=== PATIENT | male | born 1965 | race Caucasian/White ===

== ENCOUNTER → 2017-05-22 14:56 | Outpatient (CLI) | payer SELFPAY ==
[2017-05-22 16:24] LABS: ALB/GLOB Ratio 1.2 RATIO (0.9-2.4); AST(SGOT) 26 U/L (15-37); Alanine Aminotransfer ALT/SGPT 23 U/L (16-61); Albumin, Serum 3.6 g/dL (3.2-5.0); Alkaline Phosphatase 65 U/L (45-117); Anion Gap 8 (5-15); BUN 16 mg/dL (7-18); BUN/Creat Ratio 14.2 RATIO (10-20); Calcium,Total 8.6 mg/dL (8.5-10.1); Chloride 110 mmol/L (98-107); Creatinine, Serum 1.13 mg/dL (0.70-1.30); EST Glomerular Filtration Rate 72 mL/min (>60); Est Glom Filt Rate - Afr Amer 87 mL/min (>60); Globulin 3.1 g/dL (2.2-4.2); Glucose 87 mg/dL (74-106); Potassium 3.9 mmol/L (3.5-5.1); Protein, Total 6.7 g/dL (6.4-8.2); Sodium Level 144 mmol/L (136-145)
[2017-05-27 11:10] LABS: Lamotrigine (Lamictal) Level 4.7 ug/mL (2.0-20.0)
== END ==
LOC: LAB 14:58
PROVIDERS: Visit Provider Nurse Practitioner Acute Care
DX: G40.909 Epilepsy, unspecified, not intractable, without status epilepticus (principal)
CPT/HCPCS: 36415; 80053; 82542

== ENCOUNTER → 2018-11-05 15:02 | Outpatient (CLI) | payer MEDICARE, SELFPAY ==
[2018-11-05 14:47] VITALS: BMI 26.1
--- NOTE | 2018-11-05 15:06 | RAD_ITS ---
STUDY: X-RAY - LEFT SHOULDER REASON FOR EXAM: Male, 53 years old. POST OP PAIN TECHNIQUE: 4 view(s) of the shoulder. COMPARISON: 05/12/2015. FINDINGS: Stable appearance of a left total shoulder arthroplasty. No evidence for complication, loosening, or dislocation. Normal visualized proximal humerus. The soft tissue structures are unremarkable. Normal visualized pulmonary apex. RAD/Shoulder min 2 Views IMPRESSION: Stable satisfactory appearance of a left shoulder arthroplasty. Electronically Signed: Herve Sullivan MD at 18:54 EDT , Service support ,
--- NOTE | 2018-11-05 15:06 | RAD_ITS ---
STUDY: X-RAY - CERVICAL SPINE REASON FOR EXAM: Male, 53 years old. Back pain. TECHNIQUE: 5 view(s) of the cervical spine were obtained. COMPARISON: None FINDINGS: Normal anterior atlantoaxial articulation. Normal odontoid process. Normal cervical lordosis. Normal vertebral bodies and endplates. Normal disc space heights. Normal visualized intervertebral neuroforamina. The soft tissue structures are unremarkable. RAD/Cerv Spine 4 or 5 Views IMPRESSION: Normal x-ray examination of the visualized cervical spine. Electronically Signed: Marlo Salazar MD at 8:50 EDT , Service support ,
--- NOTE | 2018-11-05 15:06 | RAD_ITS ---
STUDY: X-RAY - RIGHT SHOULDER REASON FOR EXAM: Male, 53 years old. Postop pain TECHNIQUE: 4 view(s) of the shoulder. COMPARISON: 07/08/2014. FINDINGS: Stable appearance of a right humeral prosthesis with no evidence for complication or loosening. No pathologic fracture. No dislocation. Normal acromioclavicular joint. Normal acromion. Stable appearance of heterotopic bone along the inferior aspect of the glenoid which may be restricting range of motion. Normal visualized proximal humerus. The soft tissue structures are unremarkable. Normal visualized pulmonary apex. RAD/Shoulder min 2 Views IMPRESSION: No change and no evidence for consultation related to the shoulder arthroplasty. Heterotopic bone is stable and could be decreasing range of motion. Electronically Signed: Herve Sullivan MD at 18:57 EDT , Service support ,
== END ==
LOC: HPRAD 15:05
PROVIDERS: Family Provider Student in an Organized Health Care Education/Training Program; PCP Student in an Organized Health Care Education/Training Program; Referring Provider Orthopaedic Surgery; Visit Provider Orthopaedic Surgery
DX: M54.2 Cervicalgia (principal); M25.511 Pain in right shoulder; M25.512 Pain in left shoulder
CPT/HCPCS: 72050; 73030

== ENCOUNTER → 2018-11-07 13:43 | Outpatient (CLI) | payer MEDICARE, SELFPAY ==
[2018-11-05 14:47] VITALS: BMI 26.1
[2018-11-07 15:08] LABS: Absolute Lymphocyte Count 2.37 X10^3/uL (0.83-4.51); Absolute Neutrophil Count 4.1 X10^3/uL (2.0-7.7); Basophil# 0.02 X10^3/uL; Basophil% 0.3 % (0-1); Eosinophil# 0.14 X10^3/uL; Eosinophils% 1.8 % (0-5); Hematocrit 39.1 % (40-54); Hemoglobin 13.1 g/dL (13.0-16.5); Lymphocyte # 2.37 X10^3/ul (4.0); Lymphocyte % 30.9 % (19-41); Mean Corp Hgb Conc 33.5 g/dL (32-36); Mean Corpuscular Hgb 32.3 pg (27.0-32.0); Mean Corpuscular Volume 96.5 fL (80-94); Monocyte# 1.01 X10^3/uL; Monocyte% 13.2 % (0-10); NRBC Flagged by Analyzer 0 % (0-5); Neutrophil # 4.12 X10^3/uL (2.7-7.7); Neutrophil % 53.7 % (47-70); Platelet Count 219 K/mm3 (150-450); RBC Distribution Width CV 12.1 % (11.6-14.6); Red Blood Count 4.05 M/mm3 (4.6-6.2); White Blood Count 7.7 K/mm3 (4.4-11.0)
[2018-11-07 15:18] LABS: Erythrocyte Sedimentation Rate 27 mm/hr (0-20)
== END ==
PROVIDERS: Family Provider Student in an Organized Health Care Education/Training Program; PCP Student in an Organized Health Care Education/Training Program; Referring Provider Orthopaedic Surgery; Visit Provider Orthopaedic Surgery
DX: Z96.611 Presence of right artificial shoulder joint (principal)
CPT/HCPCS: 36415; 85025; 85652; 86140

== ENCOUNTER → 2018-12-05 05:54 | Outpatient (CLI) | payer MEDICARE, SELFPAY ==
[2018-11-24 14:08] VITALS: BMI 26.1
--- NOTE | 2018-12-05 05:59 | NM_ITS ---
CLINICAL: 53-year-old male with reported history of painful bilateral shoulder arthroplasties. WHOLE BODY Tc SULFUR COLLOID EXAMINATION COMPARISON: Plain film radiographic reports bilateral shoulders 11/05/2018 FINDINGS: Following the intravenous administration of 27.8 mCi of Tc sulfur colloid, image acquisitions obtained at 30 minutes post radiopharmaceutical administration reveal: 1. There is physiologic distribution of the radiopharmaceutical defined in the hepatic and splenic parenchyma, appendicular and axial marrow structures. NM/Inflammatory Process WB IMPRESSION: 1. An expected-normal physiologic pattern of tracer uptake is noted as described above. 2. The results of this examination should be compared to labeled leukocyte imaging to define the presence or absence of potential right and/or left shoulder arthroplasty septic prosthetic loosening. Electronically Signed: Nikita Roberts DO at 8:15 EDT Tel , Service support ,
== END ==
LOC: NM 05:57
PROVIDERS: Family Provider Student in an Organized Health Care Education/Training Program; PCP Student in an Organized Health Care Education/Training Program; Referring Provider Orthopaedic Surgery; Visit Provider Orthopaedic Surgery
DX: R70.0 Elevated erythrocyte sedimentation rate (principal); Z96.611 Presence of right artificial shoulder joint; Z96.612 Presence of left artificial shoulder joint
CPT/HCPCS: 78806; A9521

== ENCOUNTER 2019-01-23 09:30 | Outpatient (RCR) | payer MEDICARE, SELFPAY ==
[2018-11-24 14:08] VITALS: BMI 26.1
--- NOTE | 2018-12-22 15:47 | HP.PTEVAL ---
Patient's Visit Information SHANNON CHUNG is a 53 year old M referred to Physical Therapy by Robert Hernandez DO with a diagnosis of R hemiarthroplasty, L TSA. Date of Evaluation: 12/22/18 Physical Therapist: Mario Gilman, LUZT, OCS, CSCS - Visit Plan Frequency: 3x /Week Duration: 2-4 Weeks Plan: 3x/week for 2 -4 weeks for STM to B rhomboids, Shoulder AROM, strength of scap and RC and posture adn progress to HEP. MH as needed. - Subjective Findings: Has pain in center of back. H/o L TSA adn R khloe and not sure if that is part of the problem. Has brace for R shoulder which helped with shoulder pain. Got it two months ago and it helps. Current pain is in between shoulder blades for about a month 3/10 constantly. Works at [email or web address], is disabled, It is a light duty type thing. Epilieptic and missed last saturday due to seizures, that is the first one in a while. No idea what started this pain. Works with hands alot at work and been there about a year. Worse after work. Somewhat better with a lazy day. Housework gets irritated. No numbness or tingling in arms. No BONILLA, No dizzyness. Has a hard time remembering what he saw Dr. Rosales. then says this was f/u for shoulders. Doesski type thing for shoulders. - Pain scapula Pain Intensity (Out of 10): 3 Pain Intensity Range: 3 - Objective Posture is forward head and elevated adn forward scapula. Stiff. C/S AROM is 80 ext adn 85 B rotation without pain. Shoulder AROM flexion 135 L adn 140 R, ext rotation is 30 L and 35 R, IR is slow but functional. Scap aROM is slight limitations in depression and retraction but otherwise slow but full. reflexes 2/3 bi adn tri. Sensation UE WNL to gross light touch. Strength is 4- elevation, 3+ ext rotation B, adn 4 IR, 4+ biceps and triceps adn 4+ thumb ext - Goals Goal 1:: No tenderness in rhomboids adn patient feel 50% better with pain at 1/10 at worst. Goal Time Frame: 4-6 Weeks Goal 2:: Patient demonstrate apporpriate posture without VC consistently Goal Time Frame: 4-6 Weeks Goal 3:: I appropr HEP to minimize future problems Goal Time Frame: 4-6 Weeks Goal 4:: Less than 20% disability on quick dash Goal Time Frame: 4-6 Weeks - Rehabilitation Potential Physical Therapy Diagnosis: rhomboid strain Rehabilitation Potential: Fair - Anticipated Interventions Patient/Client Instruction: Educate patient on: Condition, Plan of Care For the Purpose of:: To decrease pain, To improve muscle performance and motor function, To increase tolerance to activity/condition/position, To improve ability of physical actions for home/community/work/leisure, To improve health of tissue Therapeutic Exercise to Include: Strength training, Postural training, Flexibilty training, Passive ROM, Active ROM, Scapular Strength/Stabilization For the Purpose of:: To decrease pain, To increase ROM, To improve muscle performance and motor function, To increase tolerance to activity/condition/position Manual Therapy Techniques to Include: Mobilization, Soft tissue mobilization For the Purpose of:: To decrease pain, To improve nutrient delivery to tissue Thermo therapy (hot pack): Yes For the Purpose of:: To decrease pain Thank you for the opportunity to evaluate your patient. For Medicare and Medicare HMO plans, please review the plan of care and approve it. It will need to be FAXED BACK to us at [phone] for Medicare purposes. For Medicare only, by signing this I certify the plan of care. Please let me know if there are questions or concerns regarding this plan of care. Physician Signature: Date:
--- NOTE | 2019-03-05 18:26 | HP.PT.NRP ---
HP - Discharge Summary (1) - Patient Information SHANNON CHUNG was seen in my office for initial evaluation on 12/22/18. The following Plan of Care was established for this patient: Initial Frequency: 3x /Week Initial Duration: 2-4 Weeks - Anticipated Interventions Patient/Client Instruction: Educate patient on: Condition, Plan of Care For the Purpose of:: To decrease pain, To improve muscle performance and motor function, To increase tolerance to activity/condition/position, To improve ability of physical actions for home/community/work/leisure, To improve health of tissue Therapeutic Exercise to Include: Strength training, Postural training, Flexibilty training, Passive ROM, Active ROM, Scapular Strength/Stabilization For the Purpose of:: To decrease pain, To increase ROM, To improve muscle performance and motor function, To increase tolerance to activity/condition/position Manual Therapy Techniques to Include: Mobilization, Soft tissue mobilization For the Purpose of:: To decrease pain, To improve nutrient delivery to tissue Thermo therapy (hot pack): Yes For the Purpose of:: To decrease pain This patient was last seen in our office 01/23/19. Pertinent comments regarding their Physical therapy will appear below: Pt seen 8 visits of his POC. He has not returned , scheduled or attended further visits at this point. It has been over a month and I will discontinue due to nonattendance. At this point I will be discontinuing this patient from physical therapy. I would be happy to see this patient again in the future if found appropriate by the physician. Thank you! Mario Gilman, DPT, OCS, CSCS
== END 2019-01-23 19:00 | disposition home or self-care (01) ==
LOC: PT 09:30
PROVIDERS: Family Provider Student in an Organized Health Care Education/Training Program; PCP Student in an Organized Health Care Education/Training Program; Referring Provider Orthopaedic Surgery; Visit Provider Orthopaedic Surgery
DX: M25.512 Pain in left shoulder (principal); M25.612 Stiffness of left shoulder, not elsewhere classified; Z96.612 Presence of left artificial shoulder joint
CPT/HCPCS: 97110; 97140; 97162

== ENCOUNTER 2019-02-04 13:39 | Emergency (ER) | payer MEDICARE, SELFPAY ==
[2018-11-24 14:08] VITALS: BMI 26.1
[2019-02-04 13:41] VITALS: BP 144/64; PULSE 83; RESP 16; TEMP 36.6; O2SAT 100; BMI 25.1
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
== END 2019-02-04 14:23 | disposition home or self-care (01) ==
LOC: ED 14:06
PROVIDERS: Emergency Provider Emergency Medicine; Family Provider Student in an Organized Health Care Education/Training Program; PCP Student in an Organized Health Care Education/Training Program
DX: L84 Corns and callosities (principal); F17.200 Nicotine dependence, unspecified, uncomplicated
CPT/HCPCS: 99282

== ENCOUNTER 2019-04-24 17:45 | Emergency (ER) | payer MEDICARE, SELFPAY ==
[2019-04-24 17:46] VITALS: BP 132/71; PULSE 75; RESP 16; TEMP 36.7; O2SAT 92; BMI 26.7
[2019-04-24] MEDS: Naproxen 500 MG Tablet PO (18:29)
--- NOTE | 2019-04-24 19:10 | ED.DCSUM_ITS ---
- ER Visit Summary Date of Service: 04/24/19 Chief Complaint: Abscess History of Present Illness: The patient is a [address] Fields. He works at [employer] and reports that a few months ago he was doing a job where he was closing a number of boxes and developed a sore on his left middle finger. He saw Dr. Fields was placed on an antibiotic the name of which she does not know and the lesion seemed to improve. Patient reports that he began doing this job again 5 days ago and that 2 days ago he had the lesion return. He reports he has a sharp pain is 10 out of 10 when he touches it and he has no pain at rest. Denies any numbness or weakness distally. His tetanus is up-to-date. He is right-hand dominant. He denies any constitutional symptoms. No fever, chills, nausea, or vomiting. Physical Examination: Vitals: Stable. Afebrile. General: Well-nourished and well-developed. Head: Normocephalic atraumatic. Neck: Supple, no lymphadenopathy. No JVD. Nontender. Cardiovascular: Regular rate and rhythm. No murmurs. Respiratory: No respiratory distress. Clear to auscultation bilaterally. Abdominal: Soft, nontender, nondistended, normal bowel sounds. No guarding, rebound, or peritoneal signs. Back: Nontender. Extremities: On the medial side of his left middle finger middle phalanx that there is a pea-sized callus with a black tawny in the center and minimal surrounding erythema. He is neurovascular intact distal to this, no edema. Skin: Normal color, no rash. Neurologic: Alert and oriented ?3. Cranial nerves II through XII are intact. Normal strength and sensation. Psych: Normal affect. Emergency Department Course and Treatment: Patient had an incision and drainage performed. He tolerated this well. He is given doxycycline p.o. He refused pain medications. Treatment Plan: Patient be discharged instructions follow-up Dr. Morris in 2 days for a wound check. He will be placed on doxycycline instructed to soak this. Return to the emergency department for any worsening symptoms. Disposition: To home in improved and stable condition. Impression: 1. Abscess left middle finger. 2. Incision and drainage. Procedure Note: Abscess was cleansed with chlorhexidine soap. Anesthetized with 1% lidocaine without epinephrine. An incision was made with an 11 scalpel blade. A small amount of pus was drained. Curved hemostats were used to break up loculations. The wound was copiously irrigated with normal saline.The patient tolerated it well. This note was generated with [employer] dictation software. It may contain incorrect words, spelling, and punctuation that were not noted in review of the chart prior to signing ED Disposition - Plan for ED Patient: Disposition: Home or Assisted Living Instructions: ABSCESS, Incision and Drainage Prescriptions: Doxycycline 100 mg PO BID #14 cap Prescription Printed Referrals: Vin Morris MD [STAFF PHYSICIAN] - 2 Days for wound check
[2019-04-24] MEDS: Doxycycline 100 MG CAPSULE PO (19:19)
[2019-04-24 19:22] VITALS: PULSE 70
== END 2019-04-24 19:25 | disposition home or self-care (01) ==
LOC: ED 18:03
PROVIDERS: Emergency Provider Emergency Medicine; PCP Student in an Organized Health Care Education/Training Program
DX: L02.512 Cutaneous abscess of left hand (principal); G40.909 Epilepsy, unspecified, not intractable, without status epilepticus; Z79.899 Other long term (current) drug therapy; F17.200 Nicotine dependence, unspecified, uncomplicated
CPT/HCPCS: 10060; 99283

== ENCOUNTER → 2019-08-03 12:12 | Outpatient (CLI) | payer MEDICARE, SELFPAY | PROVIDERS: PCP Student in an Organized Health Care Education/Training Program; Referring Provider Family Medicine; Visit Provider Family Medicine | DX: Z20.828 Contact with and (suspected) exposure to other viral communicable diseases (principal) | CPT/HCPCS: 87635; G2023; U0003 ==

== ENCOUNTER 2020-05-13 15:00 | Outpatient (RCR) | payer MEDICARE, SELFPAY ==
[2020-05-13] MEDS: COVID-19 VACC, MRNA(PFIZER)/PF 30 MCG/0.3 ML SYRINGE IM (15:25)
[2020-06-03] MEDS: COVID-19 VACC, MRNA(PFIZER)/PF 30 MCG/0.3 ML SYRINGE IM (14:46)
== END 2020-08-02 23:59 ==
LOC: IMMUN 15:00
PROVIDERS: PCP Student in an Organized Health Care Education/Training Program; Visit Provider Family Medicine
DX: Z23 Encounter for immunization (principal)
CPT/HCPCS: 0001A; 0002A; 91300

== ENCOUNTER 2022-06-07 15:06 | Emergency (ER) | payer MEDICARE, SELFPAY ==
[2022-06-07 15:08] VITALS: BP 129/67; PULSE 83; RESP 18; TEMP 37; BMI 22.9
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
[2022-06-07] MEDS: Ondansetron 4 MG/2 ML Vial IV (15:24)
[2022-06-07 15:27] LABS: Absolute Lymphocyte Count 2.61 X10^3/uL (0.83-4.51); Absolute Neutrophil Count 5.1 X10^3/uL (2.0-7.7); Basophil# 0.03 X10^3/uL; Basophil% 0.3 % (0-1); Eosinophils% 1.1 % (0-5); Hematocrit 38.7 % (40-54); Hemoglobin 13.2 g/dL (13.0-16.5); Lymphocyte # 2.61 X10^3/ul (0.83-4.51); Mean Corp Hgb Conc 34.1 g/dL (32-36); Mean Corpuscular Hgb 32.4 pg (27.0-32.0); Mean Corpuscular Volume 95.1 fL (80-94); Mean Platelet Vol. 10.2 fl (6.2-12.0); Monocyte# 1.13 X10^3/uL; Monocyte% 12.6 % (0-10); NRBC Flagged by Analyzer 0 % (0-5); Neutrophil # 5.09 X10^3/uL (2.7-7.7); Neutrophil % 56.7 % (47-70); Platelet Count 224 K/mm3 (150-450); RBC Distribution Width CV 12.4 % (11.6-14.6); RBC Distribution Width SD 43.6 fl (35.1-43.9); Red Blood Count 4.07 M/mm3 (4.6-6.2)
[2022-06-07 15:40] LABS: Alcohol, Blood (Medical)-Serum < 3.0 mg/dL
[2022-06-07 15:45] LABS: AST(SGOT) 24 U/L (15-37); Alanine Aminotransfer ALT/SGPT 22 U/L (16-61); Albumin, Serum 3.5 g/dL (3.2-5.0); Alkaline Phosphatase 56 U/L (45-117); Anion Gap 11 (5-15); BUN 11 mg/dL (7-18); BUN/Creat Ratio 9.6 RATIO (10-20); Calcium,Total 8.7 mg/dL (8.5-10.1); Chloride 107 mmol/L (98-107); Creatinine, Serum 1.14 mg/dL (0.70-1.30); EST Glomerular Filtration Rate 70 mL/min (>60); Est Glom Filt Rate - Afr Amer 85 mL/min (>60); Estimated Creatinine Clearance 68.33 ml/min; Globulin 3.5 g/dL (2.2-4.2); Glucose 131 mg/dL (74-106); Lipase 39 U/L (13-75); Potassium 3.3 mmol/L (3.5-5.1); Prolactin 16.3 ng/mL; Sodium Level 139 mmol/L (136-145); Troponin-I HS 9 pg/mL (3.0-78.0)
[2022-06-07 16:05] LABS: Lactic Acid 3.8 mmol/L (0.4-1.9)
[2022-06-07 16:07] LABS: International Normalized Ratio 1.1; Prothrombin Time (Protime)PT. 13.6 SECONDS (11.7-14.9)
[2022-06-07 16:08] LABS: Partial Thromboplast Time 27.7 Seconds (24.1-36.2)
[2022-06-07] MEDS: Lidocaine/Epi/Tetracaine 50 ML 1 APPLIC TOPICAL (16:49)
[2022-06-07 18:46] LABS: Bacteria 0 SEEN /hpf (None Seen); Mucous, Urine 0 SEEN /hpf (<or=2+); Red Blood Cells-Urine 0 SEEN /hpf (0-5); Squamous Epithelial Cells - UA 0 SEEN /hpf (0-5); White Blood Cells 0 SEEN /hpf (0-5)
[2022-06-07 18:48] LABS: Color, Urine Yellow (Yellow); Glucose, Dipstick Normal (Normal); Ketone-Dipstick 5 mg/dl (Negative); Leukocyte Esterase-Dipstick Negative /ul (Negative); Nitrite-Dipstick Negative (Negative); Occult Blood-Urine Negative /ul (Negative); Protein-Dipstick 15 mg/dl (Negative); Urine Bilirubin Dipstick Negative (Negative); Urine Clarity Clear (Clear); Urine Urobilinogen Normal (Normal); Urine pH 6.5 (5.0 - 8.0)
[2022-06-07 19:07] LABS: Amphetamine Urine VISTA NEGATIVE (<1000 ng/mL); Barbiturate Urine VISTA NEGATIVE (< 200 ng/mL); Benzodiazepine Urine VISTA NEGATIVE (< 200 ng/mL); Cocaine Urine VISTA NEGATIVE (< 300 ng/mL); Ecstacy Urine VISTA NEGATIVE (< 500 ng/mL); Methadone Urine VISTA NEGATIVE (< 300 ng/mL); PCP Urine VISTA NEGATIVE (< 25 ng/mL); THC Urine VISTA NEGATIVE (< 50 ng/mL); Vista UDS pH Range 6
[2022-06-07 19:19] VITALS: BP 123/69; PULSE 94; RESP 18; O2SAT 98
[2022-06-07 19:27] LABS: Reflex Lactate? Y
[2022-06-07 20:23] LABS: Lactic Acid 1.2 mmol/L (0.4-1.9)
[2022-06-07] MEDS: Lidocaine 2% /Epi 1:100 (20ml) 20 ML VIAL INFILT (20:28)
== END 2022-06-07 21:20 | disposition home or self-care (01) ==
PROVIDERS: Emergency Provider Emergency Medicine; PCP Student in an Organized Health Care Education/Training Program; Visit Provider Emergency Medicine
DX: R56.9 Unspecified convulsions (principal); F17.210 Nicotine dependence, cigarettes, uncomplicated; V89.2XXA Person injured in unspecified motor-vehicle accident, traffic, initial encounter; Z79.899 Other long term (current) drug therapy; F43.10 Post-traumatic stress disorder, unspecified; S01.02XA Laceration with foreign body of scalp, initial encounter
CPT/HCPCS: 12002; 70450; 70486; 71260; 72125; 74177; 80053; 80307; 81001; 82077; 83605; 83690; 84146; 84484; 85025; 85610; 85730; 93005; 96374; 99284; Q9967; A4216; J2405

== ENCOUNTER 2022-08-25 14:12 | Inpatient (IN) | payer MEDICARE, SELFPAY ==
--- NOTE | 2022-08-24 | MISC_PTH ---
PATIENT: SHANNON CHUNG LOC: [facility]3 U#:[id number] AGE/SX: 56/M ROOM: WA311 RE08/25/[address]: Dr. Desiree Ibarra DO : 1965 BED: 1 DIS: 08/30/2022 SPEC #: [id number] RECD: 08/27/22 12:50 STATUS: JENNIFER REQ #: [id number] GRIFFIN: 08/24/22 00:[address]: Todd Saldana DEPT: SURGICAL PATHOLOGY RECD BY: Dilshad Silver ENTERED: 08/27/22 12:51 SP TYPE: MISC OTHR DR: MD Dr. Jose Sandoval DO Dr. Kathryn Lee, DO Dr. Mark Tereletsky, Tissues: Small intestine mucous membrane Procedures: Surgery Specimen Level IV Comments: @ Ordering doctor for SUIV edited from to @ mary BETH at 08/27/22 1500 @ Submitting doctor edited from to DR.ACALAB Jose M BETH at 08/27/22 1500 HEADER OPERATION: Exploratory laparotomy, SBO, small bowel resection PRE-OP DIAGNOSIS: Small bowel obstruction TISSUE SUBMITTED: Small bowel segment MICROSCOPIC DIAGNOSIS Small bowel, segmental resection: Focal acute serositis. Vascular ectasia and mucosal denudation. See comment. AM:juan 08/29/2022 COMMENT The findings are consistent with bowel obstruction. Clinical correlation is suggested. MICROSCOPIC DESCRIPTION Slides are reviewed. GROSS DESCRIPTION Received in fixative is one container labeled with the patient's name and designated small bowel segment. The specimen consists of a segment of small intestine measuring 5.0 cm in length and up to 3.0 cm in diameter. Attached mesenteric tissue measures up to 1.0 cm in width. Both resection margins are stapled. A defect is noted close to one resection margin. Also present in the container is a black, foamy- spongy ball (foreign body) measuring 2.5 cm in diameter. No mucosal lesion is identified. Crankshaft Straightener sections are submitted in two cassettes as follows: 1 - resection margin, 2??auto service representative sections from the other areas. Foreign body is for gross identification only. / SONIA:juan 08/27/2022 TC:2 CPT: 48890
[2022-08-25 14:14] VITALS: BP 147/69; PULSE 112; RESP 24; TEMP 36.3; BMI 22.4
--- NOTE | 2022-08-25 14:31 | CT_ITS ---
We are attempting to reach an attending provider to discuss findings. An addendum with communication details will be sent when the communication is complete. STUDY: CT ABDOMEN AND PELVIS WITH CONTRAST - URINARY TRACT REASON FOR EXAM: Male, 56 years old. Abdominal pain RADIATION DOSAGE (If Supplied By Facility): CTDIvol = ( 11.87 ) mGy, DLP = ( 694.71 ) mGycm TECHNIQUE: IV 100mL Isovue-300 was administered. Transaxial images were obtained from the dome of the diaphragm to the symphysis pubis in the arterial, nephrographic and excretory phases. Multiplanar coronal and sagittal images were reformatted. Individualized Dose Optimization Techniques Were Used For This CT. COMPARISON: Previous CT scan of 06/07/2022. FINDINGS: The visualized portions of lung bases demonstrate mild atelectatic changes in the right lower lobe. The visualized portions of the heart are within normal limits. Normal liver. Normal gallbladder and extrahepatic biliary system. Normal spleen. Normal pancreas. Normal bilateral adrenal glands. Normal visualized stomach. Distended stomach. Markedly dilated fluid-filled with normal caliber distal small bowel. There is a transitional zone in the pelvic region. The colon is nondistended. The appendix is unremarkable. There is diffuse atherosclerotic calcification of the abdominal aorta, without a demonstrated aneurysm. No retroperitoneal adenopathy. Normal right kidney. Normal left kidney. Normal urinary bladder. Normal abdominal wall. No demonstrated acute osseous changes. CT/Abdomen/Pelvis W IV Cont ONLY IMPRESSION: Dilated small bowel loops with normal caliber distal ileal loops consistent with high-grade distal small bowel obstruction. Electronically Signed: Gabriel Dang MD at 15:25 EDT ,
--- NOTE | 2022-08-25 14:32 | EDS_ITS ---
HPI HPI - GI History of Present Illness Chief Complaint: Abd Pain Detail of Chief Complaint: Abdominal pain Informant: patient Narrative Narrative: Patient presents to the emergency department with complaint of abdominal pain that started about 2 or 3 days ago. Patient complains of frequent vomiting. Denies fever. He denies diarrhea. He denies urinary symptoms. Patient rates pain a 10 out of 10. He has had no prior abdominal surgeries. Patient states that his vomit at times smells like feces. Prior similar symptoms: No PFSH PFSH Medical History DDD (degenerative disc disease), lumbar Epilepsy PTSD (post-traumatic stress disorder) Home Medications gabapentin 300 mg capsule 300 mg PO BID 05/14/16 [History Last Taken Unknown] lamotrigine 200 mg tablet 200 mg PO BID 05/14/16 [History Last Taken Unknown] nortriptyline 10 mg capsule 10 mg PO QHS 05/14/16 [History Last Taken Unknown] ferrous sulfate 325 mg (65 mg iron) tablet 325 mg PO DAILY@0800 05/15/16 [History Last Taken Unknown] fluoxetine 20 mg capsule 20 mg PO DAILY 05/15/16 [History Last Taken Unknown] lamotrigine 100 mg tablet 100 mg PO TID 05/15/16 [History Last Taken Unknown] multivitamin 1 ea PO DAILY 05/15/16 [History Last Taken Unknown] topiramate 25 mg capsule,extended release 24 hr 25 mg PO DAILY 11/05/18 [History Last Taken Unknown] baclofen 10 mg tablet 10 mg PO QHS 02/04/19 [History Last Taken Unknown] clonazepam 0.5 mg tablet 0.25 mg PO QHS 02/04/19 [History Last Taken Unknown] doxycycline monohydrate 100 mg capsule 100 mg PO BID #14 caps 04/24/19 [Rx Last Taken Unknown] Allergy/AdvReac Type Severity Reaction Status Date / Time No Known Allergies Allergy Verified 06/07/22 15:07 Social History Smoking Status: Current every day smoker tobacco type: cigarettes ROS ROS ED Review of Systems ROS Unobtainable: other Constitutional Constitutional ED: Reports lethargy; Denies chills, fever(s), sweats or weight loss Eyes Eyes: Denies blurry vision, change in vision or diplopia ENT ENT ED: Denies rhinorrhea or sore throat Cardiovascular Cardiovascular: Denies chest pain, orthopnea or racing heartbeat Respiratory/Chest Respiratory/Chest: Denies cough, dyspnea, dyspnea on exertion, orthopnea or sputum Gastrointestinal Gastrointestinal: Reports abdominal pain, nausea and vomiting; Denies diarrhea Genitourinary Genitourinary ED: Denies dysuria, hematuria or urinary frequency Musculoskeletal Musculoskeletal: Denies arthralgias, back pain, myalgias or neck pain Integumentary Denies abscess, Abrasions or rash Neurologic Neurologic: Denies headache(s) or weakness Psychiatric Psychiatric: Denies anxiety, depression or suicidal thoughts Endocrine Endocrinology: Denies polydipsia, polyphagia or polyuria Hematologic/Lymphatic Hematologic/Lymphatic: Denies easy bleeding, easy bruising or lymphadenopathy Allergic/Immunologic Allergic/Immunologic ED: Denies mouth swelling, tongue swelling or urticaria EXAM Physical Exam Const Vital Signs: 08/25/22 14:14 08/25/22 15:57 Temperature 97.3 F L 97.8 F Temperature Source Temporal Temporal Pulse Rate 112 H 89 Respiratory Rate 24 H 14 Blood Pressure 147/69 H 154/76 H Blood Pressure Mean 95 102 Pulse Ox 99 Oxygen Delivery Method Room Air Positive well nourished and well developed General Appearance ED: well developed and NAD HEENT Reports TM's clear and moist mucous membranes normocephalic and atraumatic; Negative for trauma or tenderness Tympanic Membrane ED: Yes TM's clear Eyes PERRL and EOMs intact bilaterally General Eye ED: Negative for pale conjunctiva or scleral icterus Neck no lymphadenopathy, supple and no JVD General: Negative for tenderness Chest Wall inspection of chest normal and palpation of chest normal Chest: Negative for tenderness Resp normal respiratory effort and clear to auscultation bilaterally Effort and Inspection: Negative for respiratory distress or pain with movement Auscultation: Negative for rhonchi, wheezes or diminished lung sounds Cardio regular rate, regular rhythm, S1 normal heart sound, S2 normal heart sound and no murmurs Peripheral Pulses: pulses 2+ throughout GI normal to inspection, nondistended, normoactive bowel sounds, soft to palpation, non-distended and no masses GI Narrative: Tender to palpation over the entire abdomen diffusely. There is guarding. There is no rebound, rigidity, peritoneal signs. No masses palpated. Back/Spine no CVA tenderness and no thoracic nor lumbar tenderness Extremity normal to inspection General Extremety ED: Negative for edema General Extremity: Negative for edema Neuro oriented x3, CN's II-XII intact bilaterally, no sensory deficits noted and gait normal Sensorium / Orientation: awake, alert, oriented to person, oriented to place and oriented to time Motor Exam: strength 5/5 throughout and strength abnormal Psych mental status grossly normal Skin no rashes or lesions noted and no wounds MDM MDM MDM Narrative Medical decision making narrative: Patient presents with significant abdominal pain and vomiting x2 days. No prior surgeries. In the differential would be gallbladder disease versus small bowel obstruction versus bowel perforation versus appendicitis or other intra- abdominal process. IV line established. Patient was medicated Zofran and Dilaudid. CBC with differential obtained showed a white count of 14.2 with hemoglobin of 16 and platelet count of 341. Chemistries unremarkable. LFTs unremarkable. CT scan of the abdomen pelvis with IV contrast showed a high- grade small bowel obstruction with transition point in the pelvis. Case was discussed with general surgeon on-call. I ordered an NG to low intermittent suction to be placed. Discussed case with hospitalist to evaluate patient for admission as well. Lab Data Attestation: I reviewed the patient's lab results. Labs: Laboratory Results - last 24 hr 08/25/22 14:43 WBC 14.2 H RBC 5.03 Hgb 16.1 Hct 47.1 MCV 93.6 MCH 32.0 MCHC 34.2 RDW Std Deviation 42.7 RDW Coeff of [place]acho 12.3 Plt Count 341 MPV 9.7 Immature Gran % (Auto) 0.200 Neut % (Auto) 84.5 H Lymph % (Auto) 8.1 L [place] % (Auto) 7.0 Eos % (Auto) 0.0 Baso % (Auto) 0.2 Absolute Neuts (auto) 12.0 H Absolute Lymphs (auto) 1.15 Nucleated RBC % 0 Sodium 140 Potassium 4.0 Chloride 104 Carbon Dioxide 26.0 Anion Gap 10 BUN 18 Creatinine 1.11 Estim Creat Clear Calc 68.74 Est GFR (MDRD) Af Amer 87 Est GFR (MDRD) Non-Af 72 BUN/Creatinine Ratio 16.2 Glucose 116 H Lactic Acid 1.7 Calcium 10.9 H Total Bilirubin 0.50 AST 13 L ALT 17 Alkaline Phosphatase 73 Total Protein 8.1 Albumin 3.5 Globulin 4.6 H Albumin/Globulin Ratio 0.8 L Radiography Diagnostic Testing: Clinical Impression(s) from Imaging Studies Abdomen/Pelvis CT 08/25/22 14:31 IMPRESSION: Dilated small bowel loops with normal caliber distal ileal loops consistent with high-grade distal small bowel obstruction. Electronically Signed: Gabreil Dang MD at 15:25 EDT , ADDENDUM: 08/25/22 1536 IMPRESSION: Dilated small bowel loops with normal caliber distal ileal loops consistent with high-grade distal small bowel obstruction. N.B. : The above Results were Read Back by Gabriel Dang MD to Juan R Foote DO, and understanding confirmed on 08/25/2022 15:29:13 (ET). Electronically Signed: Gabriel Dang MD at 15:25 EDT , 1 view KUB obtained for NG tube placement on my interpretation shows good position of the nasogastric tube within the fundus of the stomach. Official report from radiology pending. Discharge Plan Dx/Rx/DC Orders Clinical Impression: Complete small bowel obstruction, History of epilepsy, Abdominal pain Disposition Disposition: Acute Care [facility]
[2022-08-25] MEDS: 0.9% Normal Saline 1,000 ML 1000 ML IV (14:43)
[2022-08-25] MEDS: Ondansetron 4 MG/2 ML Vial IV (14:44)
[2022-08-25] MEDS: HYDROmorphone 1 MG/ML Syringe IV (14:44)
[2022-08-25 14:55] LABS: Absolute Lymphocyte Count 1.15 X10^3/uL (0.83-4.51); Basophil# 0.03 X10^3/uL; Basophil% 0.2 % (0-1); Hematocrit 47.1 % (40-54); Hemoglobin 16.1 g/dL (13.0-16.5); Lymphocyte # 1.15 X10^3/ul (0.83-4.51); Lymphocyte % 8.1 % (19-41); Mean Corp Hgb Conc 34.2 g/dL (32-36); Mean Corpuscular Volume 93.6 fL (80-94); Mean Platelet Vol. 9.7 fl (6.2-12.0); Monocyte# 0.99 X10^3/uL; NRBC Flagged by Analyzer 0 % (0-5); Neutrophil # 12.02 X10^3/uL (2.7-7.7); Neutrophil % 84.5 % (47-70); Platelet Count 341 K/mm3 (150-450); RBC Distribution Width CV 12.3 % (11.6-14.6); RBC Distribution Width SD 42.7 fl (35.1-43.9); Red Blood Count 5.03 M/mm3 (4.6-6.2); White Blood Count 14.2 K/mm3 (4.4-11.0)
[2022-08-25 15:07] LABS: ALB/GLOB Ratio 0.8 RATIO (0.9-2.4); AST(SGOT) 13 U/L (15-37); Alanine Aminotransfer ALT/SGPT 17 U/L (16-61); Albumin, Serum 3.5 g/dL (3.2-5.0); Alkaline Phosphatase 73 U/L (45-117); Anion Gap 10 (5-15); BUN 18 mg/dL (7-18); BUN/Creat Ratio 16.2 RATIO (10-20); Calcium,Total 10.9 mg/dL (8.5-10.1); Chloride 104 mmol/L (98-107); Creatinine, Serum 1.11 mg/dL (0.70-1.30); EST Glomerular Filtration Rate 72 mL/min (>60); Est Glom Filt Rate - Afr Amer 87 mL/min (>60); Estimated Creatinine Clearance 68.74 ml/min; Globulin 4.6 g/dL (2.2-4.2); Glucose 116 mg/dL (74-106); Protein, Total 8.1 g/dL (6.4-8.2); Sodium Level 140 mmol/L (136-145)
--- NOTE | 2022-08-25 15:52 | RAD_ITS ---
INDICATION: ng tube placement -- KUB with both diaphragms for NG/OG Verification EXAMINATION/TECHNIQUE: X-RAY - XR Abdomen 1 View COMPARISON: None FINDINGS: BOWEL GAS PATTERN: Multiple dilated loops of small bowel measuring up to 3.1 cm in diameter. There is an NG tube in place with tip and sidehole in the stomach. FREE AIR: Not assessed on a single supine view. ORGANOMEGALY: Not seen. CALCIFICATIONS: No abnormal calcifications observed. LOWER CHEST: No acute pathology. BONES AND SOFT TISSUES: No acute pathology. RAD/Abdomen Single View (Portable) IMPRESSION: NG tube in place with tip and sidehole in the stomach. Findings consistent with small bowel obstruction. Electronically Signed: Arnie Beatty MD at 16:51 EDT ,
[2022-08-25 15:53] LABS: Lactic Acid 1.7 mmol/L (0.4-1.9)
--- NOTE | 2022-08-25 15:54 | NURSING ---
MED SURG TERELETSKY SBO, HYPERTENSION, ABD PAIN, HX OF SEIZURES
[2022-08-25 15:57] VITALS: BP 154/76; PULSE 89; RESP 14; TEMP 36.6; O2SAT 99
[2022-08-25 17:44] VITALS: BMI 21.7
--- NOTE | 2022-08-25 18:23 | PCM.HP.STD ---
HPI - General General Date of Admission: 08/25/22 Date of Service: 08/25/22 Chief Complaint: Nausea and vomiting, generalized abdominal pain HPI Narrative SHANNON CHUNG, is a 56 M who presents to the emergency room at [facility] with complaints of generalized abdominal pain and nausea and vomiting x48 hours. Patient denies any diarrhea, he denies any hematemesis. Work-up in the emergency room showed an elevated white blood cell count of 14.2, patient's chemistry profile was unremarkable. CT of the abdomen and pelvis showed a dilated small bowel loops with normal caliber distal ileal loops consistent with a high-grade distal small bowel obstruction. NG tube was inserted in the emergency room, patient will be seen by general surgery, he will be admitted to [place] [id number] for distal small bowel obstruction. FORMERLY [facility], [facility]1983 Medical History DDD (degenerative disc disease), lumbar Epilepsy PTSD (post-traumatic stress disorder) Home Medications gabapentin 300 mg capsule 300 mg PO BID 05/14/16 [History Last Taken Unknown] lamotrigine 200 mg tablet 200 mg PO BID 05/14/16 [History Last Taken Unknown] nortriptyline 10 mg capsule 10 mg PO QHS 05/14/16 [History Last Taken Unknown] ferrous sulfate 325 mg (65 mg iron) tablet 325 mg PO DAILY@0800 05/15/16 [History Last Taken Unknown] fluoxetine 20 mg capsule 20 mg PO DAILY 05/15/16 [History Last Taken Unknown] lamotrigine 100 mg tablet 100 mg PO TID 05/15/16 [History Last Taken Unknown] multivitamin 1 ea PO DAILY 05/15/16 [History Last Taken Unknown] topiramate 25 mg capsule,extended release 24 hr 25 mg PO DAILY 11/05/18 [History Last Taken Unknown] baclofen 10 mg tablet 10 mg PO QHS 02/04/19 [History Last Taken Unknown] clonazepam 0.5 mg tablet 0.25 mg PO QHS 02/04/19 [History Last Taken Unknown] doxycycline monohydrate 100 mg capsule 100 mg PO BID #14 caps 04/24/19 [Rx Last Taken Unknown] Allergy/AdvReac Type Severity Reaction Status Date / Time No Known Allergies Allergy Verified 06/07/22 15:07 Social History Smoking Status: Current every day smoker tobacco type: cigarettes ROS Constitutional Constitutional: Denies anorexia, change in weight, fever(s), night sweats or weakness Eyes Eyes: Denies blurry vision, change in vision, discharge from eye(s) or eye pain ENT HEENT: Denies dysphagia, ear pain or epistaxis Cardiovascular Cardiovascular: Denies chest pain, claudication, dyspnea on exertion, edema or palpitations Respiratory/Chest Respiratory/Chest: Denies cough, excessive phlegm production, hemoptysis, shortness of breath at rest or shortness of breath with exertion Gastrointestinal Gastrointestinal: Reports abdominal pain, nausea and vomiting; Denies constipation, diarrhea, hematemesis, hematochezia or melena Genitourinary Genitourinary: Denies dysuria, hematuria, urinary frequency, urinary hesitancy, urinary incontinence or urinary urgency Musculoskeletal Musculoskeletal: Denies back pain, joint pain, joint stiffness, joint swelling, myalgias or neck pain Neurologic Neurologic: Reports seizures; Denies abnormal gait, abnormal speech, confusion, disequilibrium, dizziness, focal weakness, headache(s), loss of vision, numbness, other visual disturbances, paresthesias, syncope or tingling Psychiatric Psychiatric: Denies anxiety, cognitive impairment, depression, irritability, mood swings or suicidal ideation Endocrine Endocrinology: Denies change in body appearance, cold intolerance, excessive sweating, heat intolerance, polydipsia or polyuria Hematologic/Lymphatic Hematologic/Lymphatic: Denies none, anemia, easy bleeding, easy bruising or lymphadenopathy Allergic/Immunologic Allergic/Immunologic: Denies rhinitis, urticaria, eczemia or asthma Vital Signs Vital Signs Vital Signs: 08/25/22 14:14 08/25/22 15:57 08/25/22 17:58 Temperature 97.3 F L 97.8 F Temperature Source Temporal Temporal Pulse Rate 112 H 89 Respiratory Rate 24 H 14 Respiratory Effort Normal Non-Labored Respiratory Depth Normal Blood Pressure 147/69 H 154/76 H Blood Pressure Mean 95 102 Pulse Ox 99 Oxygen Delivery Method Room Air Room Air Weight Weight: 66.8 kg Body Mass Index (BMI) 21.7 Physical Exam Const alert, oriented x3 and no apparent distress Constitutional Narrative: Patient appears cachectic and unwell General Appearance: cooperative, well kempt and well developed Orientation / Consciousness: awake, oriented to person, oriented to place and oriented to time HEENT normocephalic, head/scalp atraumatic, hearing grossly normal bilaterally and moist oral mucous membranes Eyes PERRL, EOMs intact bilaterally and conjunctivae normal Neck supple, no JVD, thyroid normal and no carotid bruits General: trachea midline Resp normal respiratory effort, no retractions, no use of accessory muscles and clear to auscultation bilaterally Auscultation: Negative for rales, rhonchi or wheezes Cardio regular rate, regular rhythm, S1 normal heart sound, S2 normal heart sound, no murmurs, no rub and no gallops GI GI Narrative: Abdomen is nondistended, high-pitched bowel sounds are noted to be present Extremity no clubbing, cyanosis or edema Skin no rashes or lesions noted General Skin Exam: no breakdown Neuro oriented x3, CN's II-XII intact bilaterally, moves all extremities, no focal motor deficits and no sensory deficits noted Sensorium / Orientation: awake, alert, oriented to person, oriented to place and oriented to time Speech: speech normal Psych affect normal Results Lab / Micro Data 08/25/22 14:43 08/25/22 14:43 Labs: Laboratory Results - last 24 hr 08/25/22 14:43: WBC 14.2 H, RBC 5.03, Hgb 16.1, Hct 47.1, MCV 93.6, MCH 32.0, MCHC 34.2, RDW Std Deviation 42.7, RDW Coeff of [place]acho 12.3, Plt Count 341, MPV 9.7, Immature Gran % (Auto) 0.200, Neut % (Auto) 84.5 H, Lymph % (Auto) 8.1 L, [place] % (Auto) 7.0, Eos % (Auto) 0.0, Baso % (Auto) 0.2, Absolute Neuts (auto) 12.0 H, Absolute Lymphs (auto) 1.15, Nucleated RBC % 0, Sodium 140, Potassium 4.0, Chloride 104, Carbon Dioxide 26.0, Anion Gap 10, BUN 18, Creatinine 1.11, Estim Creat Clear Calc 68.74, Est GFR (MDRD) Af Amer 87, Est GFR (MDRD) Non-Af 72, BUN/Creatinine Ratio 16.2, Glucose 116 H, Lactic Acid 1.7, Calcium 10.9 H, Total Bilirubin 0.50, AST 13 L, ALT 17, Alkaline Phosphatase 73, Total Protein 8.1, Albumin 3.5, Globulin 4.6 H, Albumin/Globulin Ratio 0.8 L Radiology Impression Abdomen/Pelvis CT 08/25/22 14:31 IMPRESSION: Dilated small bowel loops with normal caliber distal ileal loops consistent with high-grade distal small bowel obstruction. Electronically Signed: Gabriel Dang MD at 15:25 EDT , ADDENDUM: 08/25/22 1536 IMPRESSION: Dilated small bowel loops with normal caliber distal ileal loops consistent with high-grade distal small bowel obstruction. N.B. : The above Results were Read Back by Gabriel Dang MD to Juan R Foote DO, and understanding confirmed on 08/25/2022 15:29:13 (ET). Electronically Signed: Gabriel Dang MD at 15:25 EDT , KUB X-Ray 08/25/22 15:52 IMPRESSION: NG tube in place with tip and sidehole in the stomach. Findings consistent with small bowel obstruction. Electronically Signed: Arnie Beatty MD at 16:51 EDT , Assessment & Plan Assessment/Plan (1) Abdominal pain: PLAN: Plan 1. Middle small bowel obstruction-etiology unclear, general surgery will see the patient in consultation, patient will be admitted to [facility] 3, NG tube was inserted in the ER and this will be continued, IV fluids will be administered #2 chronic seizure disorder-I will place the patient on IV Keppra #3 leukocytosis-etiology unclear Total clinical time spent by myself addressing patient's medical issues, reviewing all of his data, and collaborating with patient's care team: 55-minutes Charges/Coding Visit Charges Inpatient E&M: 10545 Init Hosp L2
--- NOTE | 2022-08-25 18:58 | CON.PCM.SX_ITS ---
Assessment & Plan Assessment/Plan (1) Complete small bowel obstruction: PLAN: The patient had vomiting and abdominal pain. A CT revealed a small bowel obstruction. Upon review of the CT it appears there is a very large rounded object causing this obstruction in the mid small bowel. When I reviewed his CT from May it appears that this round object was in his stomach at the pylorus. I discussed performing a laparotomy tomorrow morning to remove the segment of bowel and perform an anastomosis. I believe would be too large to remove and repair the bowel. I discussed the risks of the procedure such as bleeding, infection, anastomotic leak. Patient understands the risks and is willing to proceed. Patient has an NG tube and is comfortable at this time. I will perform surgery in the morning to remove this segment of bowel in the obstruction. Todd Saldana MD Pager: [facility] [address] [place] [address], [address] [place] [phone] Office: HPI Consult Data Date of Consult: 08/25/22 HPI Narrative HPI Narrative: SHANNON CHUNG, is a 56 M who presents with abdominal pain and vomiting. The hardik victoria reports is been going on for 3 days. Patient reports his abdominal pain is spotty throughout his abdomen. He denies any blood in his stool. He reports that he has been vomiting up fecal material. [facility] Medical History DDD (degenerative disc disease), lumbar Epilepsy PTSD (post-traumatic stress disorder) Home Medications gabapentin 300 mg capsule 300 mg PO BID 05/14/16 [History Last Taken Unknown] lamotrigine 200 mg tablet 200 mg PO BID 05/14/16 [History Last Taken Unknown] nortriptyline 10 mg capsule 10 mg PO QHS 05/14/16 [History Last Taken Unknown] ferrous sulfate 325 mg (65 mg iron) tablet 325 mg PO DAILY@0800 05/15/16 [History Last Taken Unknown] fluoxetine 20 mg capsule 20 mg PO DAILY 05/15/16 [History Last Taken Unknown] lamotrigine 100 mg tablet 100 mg PO TID 05/15/16 [History Last Taken Unknown] multivitamin 1 ea PO DAILY 05/15/16 [History Last Taken Unknown] topiramate 25 mg capsule,extended release 24 hr 25 mg PO DAILY 11/05/18 [History Last Taken Unknown] baclofen 10 mg tablet 10 mg PO QHS 02/04/19 [History Last Taken Unknown] clonazepam 0.5 mg tablet 0.25 mg PO QHS 02/04/19 [History Last Taken Unknown] doxycycline monohydrate 100 mg capsule 100 mg PO BID #14 caps 04/24/19 [Rx Last Taken Unknown] Allergy/AdvReac Type Severity Reaction Status Date / Time No Known Allergies Allergy Verified 06/07/22 15:07 Social History Smoking Status: Current every day smoker tobacco type: cigarettes ROS Eyes Eyes: Denies blurry vision ENT HEENT: Denies abnormal hearing Cardiovascular Cardiovascular: Denies chest pain Respiratory/Chest Respiratory/Chest: Denies cough, dyspnea or productive cough Gastrointestinal Gastrointestinal: Reports abdominal pain, nausea and vomiting; Denies constipation, diarrhea or dysphagia Genitourinary Genitourinary: Denies change in urinary stream Musculoskeletal Musculoskeletal: Denies abnormal gait Integumentary Integumentary: Denies jaundice Neurologic Neurologic: Denies abnormal gait or dizziness Psychiatric Psychiatric: Denies anxiety Endocrine Endocrinology: Denies flushing Hematologic/Lymphatic Hematologic/Lymphatic: Denies easy bleeding Physical Exam Const alert and oriented x3 HEENT normocephalic Resp normal respiratory effort Cardio Rate: regular rate Rhythm: regular rhythm GI soft to palpation and non-distended Palpation: tender Extremity normal to inspection Skin no rashes or lesions noted Neuro CN's II-XII intact bilaterally Lab / Micro Data 08/25/22 14:43 08/25/22 14:43 Labs: Laboratory Results - last 24 hr 08/25/22 14:43: WBC 14.2 H, RBC 5.03, Hgb 16.1, Hct 47.1, MCV 93.6, MCH 32.0, MCHC 34.2, RDW Std Deviation 42.7, RDW Coeff of Chacho 12.3, Plt Count 341, MPV 9.7, Immature Gran % (Auto) 0.200, Neut % (Auto) 84.5 H, Lymph % (Auto) 8.1 L, [place] % (Auto) 7.0, Eos % (Auto) 0.0, Baso % (Auto) 0.2, Absolute Neuts (auto) 12.0 H, Absolute Lymphs (auto) 1.15, Nucleated RBC % 0, Sodium 140, Potassium 4.0, Chloride 104, Carbon Dioxide 26.0, Anion Gap 10, BUN 18, Creatinine 1.11, Estim Creat Clear Calc 68.74, Est GFR (MDRD) Af Amer 87, Est GFR (MDRD) Non-Af 72, BUN/Creatinine Ratio 16.2, Glucose 116 H, Lactic Acid 1.7, Calcium 10.9 H, Total Bilirubin 0.50, AST 13 L, ALT 17, Alkaline Phosphatase 73, Total Protein 8.1, Albumin 3.5, Globulin 4.6 H, Albumin/Globulin Ratio 0.8 L Radiology Impression Abdomen/Pelvis CT 08/25/22 14:31 IMPRESSION: Dilated small bowel loops with normal caliber distal ileal loops consistent with high-grade distal small bowel obstruction. Electronically Signed: Gabriel Dang MD at 15:25 EDT , ADDENDUM: 08/25/22 1536 IMPRESSION: Dilated small bowel loops with normal caliber distal ileal loops consistent with high-grade distal small bowel obstruction. N.B. : The above Results were Read Back by Gabriel Dang MD to Juan R Foote DO, and understanding confirmed on 08/25/2022 15:29:13 (ET). Electronically Signed: Gabriel Dang MD at 15:25 EDT , ADDENDUM: 08/25/22 1840 IMPRESSION: undefined KUB X-Ray 08/25/22 15:52 IMPRESSION: NG tube in place with tip and sidehole in the stomach. Findings consistent with small bowel obstruction. Electronically Signed: Arnie Beatty MD at 16:51 EDT ,
[2022-08-25 20:00] VITALS: BP 153/90; PULSE 119; RESP 18; TEMP 36.2; O2SAT 98
[2022-08-25] MEDS: 0.9% Normal Saline 1,000 ML 150 ML IV (20:36)
[2022-08-25 21:22] LABS: Bacteria 0 SEEN /hpf (None Seen); Mucous, Urine 0 SEEN /hpf (<or=2+); Red Blood Cells-Urine 0 SEEN /hpf (0-5); Squamous Epithelial Cells - UA 0 SEEN /hpf (0-5)
[2022-08-25 21:28] LABS: Color, Urine Yellow (Yellow); Glucose, Dipstick Normal (Normal); Leukocyte Esterase-Dipstick 25 /ul (Negative); Nitrite-Dipstick Negative (Negative); Occult Blood-Urine Negative /ul (Negative); Protein-Dipstick 30 mg/dl (Negative); Urine Bilirubin Dipstick Negative (Negative); Urine Clarity Clear (Clear); Urine Urobilinogen Normal (Normal)
[2022-08-25 21:32] LABS: Ketone-Dipstick 150 mg/dl (Negative)
[2022-08-25 21:33] LABS: White Blood Cells 0-5 SEEN /hpf (0-5)
[2022-08-25] MEDS: morphine 10 MG/ML Syringe IV (22:17)
[2022-08-25] MEDS: levETIRAcetam IV 1,000 MG/100 ML BAG 400 MG IV (22:18)
[2022-08-25] MEDS: 0.9% Saline Lock 10 ML Syringe IV (22:18)
[2022-08-26] VITALS (15 sets, daily range): BP systolic 101–139; BP diastolic 64–83; PULSE 93–143; RESP 16–18; TEMP 36.8–38.1; O2SAT 92–99; BMI 21.8
[2022-08-26] MEDS: 0.9% Normal Saline 1,000 ML 150 ML IV ×2 (03:42→11:57)
--- NOTE | 2022-08-26 03:45 | NURSING ---
Patient pulled out NG tube at 345. Dr. Alonso aware.
[2022-08-26] MEDS: Metoprolol Tartrate 5 MG/5 ML Vial IV ×2 (05:03→06:55)
[2022-08-26 05:10] LABS: Absolute Lymphocyte Count 0.54 X10^3/uL (0.83-4.51); Absolute Neutrophil Count 3.6 X10^3/uL (2.0-7.7); Basophil# 0.04 X10^3/uL; Basophil% 0.7 % (0-1); Hematocrit 49.7 % (40-54); Hemoglobin 16.1 g/dL (13.0-16.5); Lymphocyte # 0.54 X10^3/ul (0.83-4.51); Lymphocyte % 9.7 % (19-41); Mean Corp Hgb Conc 32.4 g/dL (32-36); Mean Corpuscular Hgb 31.9 pg (27.0-32.0); Mean Corpuscular Volume 98.4 fL (80-94); Mean Platelet Vol. 9.7 fl (6.2-12.0); Monocyte# 1.41 X10^3/uL; Monocyte% 25.4 % (0-10); NRBC Flagged by Analyzer 0 % (0-5); Neutrophil # 3.56 X10^3/uL (2.7-7.7); POSITIVE DIFFERENTIAL YES; POSITIVE MORPHOLOGY YES; Platelet Count 269 K/mm3 (150-450); RBC Distribution Width CV 12.8 % (11.6-14.6); RBC Distribution Width SD 45.9 fl (35.1-43.9); Red Blood Count 5.05 M/mm3 (4.6-6.2); White Blood Count 5.6 K/mm3 (4.4-11.0)
[2022-08-26 05:19] LABS: Differential Indicated SCAN CRITERIA MET
[2022-08-26 05:20] LABS: Partial Thromboplast Time 28.9 Seconds (24.1-36.2)
[2022-08-26 05:31] LABS: ALB/GLOB Ratio 0.7 RATIO (0.9-2.4); AST(SGOT) 10 U/L (15-37); Alanine Aminotransfer ALT/SGPT 13 U/L (16-61); Albumin, Serum 2.9 g/dL (3.2-5.0); Alkaline Phosphatase 63 U/L (45-117); Anion Gap 9 (5-15); BUN 26 mg/dL (7-18); BUN/Creat Ratio 27.7 RATIO (10-20); Calcium,Total 9.5 mg/dL (8.5-10.1); Chloride 114 mmol/L (98-107); Creatinine, Serum 0.94 mg/dL (0.70-1.30); EST Glomerular Filtration Rate 88 mL/min (>60); Est Glom Filt Rate - Afr Amer 106 mL/min (>60); Estimated Creatinine Clearance 80.93 ml/min; Globulin 4.2 g/dL (2.2-4.2); Glucose 161 mg/dL (74-106); Potassium 3.2 mmol/L (3.5-5.1); Protein, Total 7.1 g/dL (6.4-8.2); Sodium Level 145 mmol/L (136-145)
--- NOTE | 2022-08-26 06:27 | PCM.HOSP.N ---
Hospitalist Note Patient with notable tachycardia, administered IV lopressor with rate improvement and appearance sinus rhythm, has ongoing IVFs, denies any current acute pain, continue to monitor.
[2022-08-26] MEDS: 0.9% Saline Lock 10 ML Syringe IV (06:55)
--- NOTE | 2022-08-26 07:05 | EKG12_ITS ---
Test Reason : RYTHMN CHANGE Blood Pressure : / mmHG Vent. Rate : 077 BPM Atrial Rate : 077 BPM P-R Int : 172 ms QRS Dur : 098 ms QT Int : 376 ms P-R-T Axes : 091 007 040 degrees QTc Int : 425 ms Normal sinus rhythm Nonspecific T wave abnormality Abnormal ECG When compared with ECG of 26-AUG-2022 22:02, MANUAL COMPARISON REQUIRED, DATA IS UNCONFIRMED Confirmed by MARBELLA HOFFMAN, BABS ([id number]), production editor YUNIOR NORIEGA ([id number]) on 08/30/2022 10:40:09 AM Referred By: RINA Confirmed By:BABS TYSON MD
[2022-08-26] MEDS: Lactated Ringers 1,000 ML 15 ML IV (07:30)
[2022-08-26] MEDS: Bupivacaine Mpf 0.5% 30 ML VIAL (08:51)
[2022-08-26] MEDS: Potassium Chloride 10mEq/100mL 10 MEQ/100 ML IV.SOLN. 100 MEQ IV BOLUS ×2 (09:14→10:51)
[2022-08-26] MEDS: levETIRAcetam IV 1,000 MG/100 ML BAG 400 MG IV (10:48)
--- NOTE | 2022-08-26 11:06 | PCM.OPRPT ---
Report of Operation Date of Procedure: 08/26/22 Pre-Operative Diagnosis: Small bowel obstruction Post-Operative Diagnosis: Small bowel obstruction due to foreign object Surgery/Procedure Performed:: Exploratory laparotomy with small bowel resection Specimen's removed: Small bowel segment Description of Procedure: Patient was brought back to the operating room and general anesthesia was induced. The abdomen was prepped and draped in usual sterile fashion. Midline incision was made from just above to just below the umbilicus. The fascia was elevated and incised. The fascia was then opened superiorly inferiorly using electrocautery with a finger regarding the bowel. A wound protector was then placed. The small bowel was brought through the incision and the foreign object was immediately identified. It appeared to be causing obstruction. It appeared to be around softball. It was too large to remove and repair the bowel so the segment was resected. Proximal and distal to the foreign body the small bowel was divided using a JUAN stapler. The mesentery to the segment was taken down using LigaSure impact. Next the corner of each staple line of the bowel was removed and a JUAN stapler was used to create a [id number] functional end and anastomosis. The stapler was removed and the staple line was inspected and was hemostatic. The TX 60 was then used to close the enterostomy. Interrupted 3-0 silk sutures were used to maintain hemostasis at the staple line. A 3-0 silk crotch suture was also sutured just distal to the staple line. The mesenteric defect was closed using a running 3-0 Vicryl suture. The bowel was inspected and appeared to have good hemostasis and good blood supply and it was returned to the abdomen. The abdomen was irrigated and suctioned dry. Next the fascia was closed in a running fashion from the top and bottom using 0 PDS suture meeting in the middle. The subcutaneous tissue was irrigated and suctioned dry and the skin was injected with local anesthetic. Skin was closed with interrupted 4-0 Monocryl sutures. Steri-Strips and bandages were applied. The specimen was opened at the back table after the surgery and it appeared that the patient had a foam rubber ball that he had ingested that was causing obstruction. The rubber ball and the segment of bowel were sent for pathology. Patient was taken to PACU in stable condition. Admit VTE Documentation VTE Mechan Device Prophylaxis: SCD's
--- NOTE | 2022-08-26 15:18 | PCM.PN.HOSP ---
Reason for Visit Reason for Visit: Diagnoses Complete intestinal obstruction, unspecified as to cause (08/25/22) Unspecified abdominal pain (08/25/22) Subjective Subjective Patient was seen and examined today, he went to surgery today and a small nerve ball was removed from the patient's small intestine, patient denies knowing how it got there. Objective Data Objective Data Vital Signs: Vital Signs Temp Pulse Resp BP Pulse Ox O2 Del Method O2 Flow Rate 98.3 F 118 H 18 123/71 H 95 Room Air 3 08/26/22 12:59 08/26/22 12:59 08/26/22 12:59 08/26/22 12:59 08/26/22 12:59 08/26/22 12:59 08/26/22 10:59 Oxygen Flow Rate (L/min) 3 Oxygen Delivery Method Room Air Weight: 66.8 kg Body Mass Index (BMI) 21.8 Intake & Output: Intake and Output for Last 24 Hours 08/24/22 08/25/22 08/26/22 23:59 23:59 23:59 Intake Total 1210 / 1210 2960 / 2960 Output Total 1750 / 1750 Balance 1210 / 960 1210 / 1210 Lab / Micro Data 08/26/22 05:02 08/26/22 05:02 Labs: Laboratory Results - last 24 hr 08/25/22 14:43: Lactic Acid 1.7 08/25/22 21:16: Urine Color Yellow, Urine Clarity Clear, Urine pH 5.0, Ur Specific [place] 1.020, Urine Protein 30 H, Urine Glucose (UA) Normal, Urine Ketones 150 A*, Urine Occult Blood Negative, Urine Nitrite Negative, Urine Bilirubin Negative, Urine Urobilinogen Normal, Ur Leukocyte Esterase 25 H, Urine RBC 0 SEEN, Urine WBC 0-5 SEEN, Ur Squamous Epith Cells 0 SEEN, Urine Bacteria 0 SEEN, Urine Mucus 0 SEEN 08/26/22 05:02: WBC 5.6, RBC 5.05, Hgb 16.1, Hct 49.7, MCV 98.4 H D, MCH 31.9, MCHC 32.4 D, RDW Std Deviation 45.9 H, RDW Coeff of Chacho 12.8, Plt Count 269, MPV 9.7, Immature Gran % (Auto) 0.200, Neut % (Auto) 64.0, Lymph % (Auto) 9.7 L, [place] % (Auto) 25.4 H, Eos % (Auto) 0.0, Baso % (Auto) 0.7, Absolute Neuts (auto) 3.6, Absolute Lymphs (auto) 0.54 L, Nucleated RBC % 0, APTT 28.9, Sodium 145, Potassium 3.2 L, Chloride 114 H, Carbon Dioxide 22.0, Anion Gap 9, BUN 26 H, Creatinine 0.94, Estim Creat Clear Calc 80.93, Est GFR (MDRD) Af Amer 106, Est GFR (MDRD) Non-Af 88, BUN/Creatinine Ratio 27.7 H, Glucose 161 H, Calcium 9.5, Total Bilirubin 0.40, AST 10 L, ALT 13 L, Alkaline Phosphatase 63, Total Protein 7.1, Albumin 2.9 L, Globulin 4.2, Albumin/Globulin Ratio 0.7 L, Levetiracetam Cancelled Radiography Diagnostic Testing: Radiology Impression Abdomen/Pelvis CT 08/25/22 14:31 IMPRESSION: Dilated small bowel loops with normal caliber distal ileal loops consistent with high-grade distal small bowel obstruction. Electronically Signed: Gabriel Dang MD at 15:25 EDT , ADDENDUM: 08/25/22 1536 IMPRESSION: Dilated small bowel loops with normal caliber distal ileal loops consistent with high-grade distal small bowel obstruction. N.B. : The above Results were Read Back by Gabriel Dang MD to Juan R Foote DO, and understanding confirmed on 08/25/2022 15:29:13 (ET). Electronically Signed: Gabriel Dang MD at 15:25 EDT , ADDENDUM: 08/25/22 1840 IMPRESSION: undefined KUB X-Ray 08/25/22 15:52 IMPRESSION: NG tube in place with tip and sidehole in the stomach. Findings consistent with small bowel obstruction. Electronically Signed: Arnie Beatty MD at 16:51 EDT , Physical Exam Const alert and no apparent distress Constitutional Narrative: Patient appears older than his stated age General Appearance: cooperative, well kempt and well developed Orientation / Consciousness: awake, oriented to person and oriented to place HEENT normocephalic and moist oral mucous membranes Eyes PERRL, EOMs intact bilaterally and conjunctivae normal Neck supple, no JVD, thyroid normal and no carotid bruits General: trachea midline Resp normal respiratory effort, no retractions, no use of accessory muscles and clear to auscultation bilaterally Auscultation: Negative for rales, rhonchi or wheezes Cardio regular rate, regular rhythm, S1 normal heart sound, S2 normal heart sound, no murmurs, no rub and no gallops GI normal to inspection, nondistended, normoactive bowel sounds, soft to palpation and non-distended Extremity no clubbing, cyanosis or edema Skin no rashes or lesions noted General Skin Exam: no breakdown Neuro oriented x3, CN's II-XII intact bilaterally, no focal motor deficits and no sensory deficits noted Sensorium / Orientation: awake and alert Speech: speech normal Psych affect normal Assessment & Plan Assessment/Plan (1) Abdominal pain: PLAN: Plan 1. Small bowel obstruction secondary to impacted foreign body in the small intestine-patient underwent surgery today for removal of the foreign body, continue postop care per general surgery, I will restart the patient's oral seizure medications and stop his Keppra #2 chronic seizure disorder-I will place the patient on his home medications, it is unclear what dose of Topamax the patient is actually taking, I have elected to place him on 100 mg twice daily. His Lamictal dosage was incorrect according to pharmacy-they checked with his outpatient record-this was corrected in the hospital. Patient's Keppra was stopped. #3 leukocytosis-corrected at this time Total clinical time spent by myself addressing patient's medical issues, reviewing all of his data, and collaborating with patient's care team: 25-minutes Charges/Coding Visit Charges Inpatient E&M: 30600 Subs Hosp L1
[2022-08-26] MEDS: 0.9% Normal Saline 1,000 ML 500 ML IV ×2 (16:50→19:14)
--- NOTE | 2022-08-26 21:18 | NURSING ---
pt hrt rate 180s. pt in svt hrt 180s. 18 beats. Pt then went back into st 104.resp paged for ekg. Per Denise pt said he was trying to void.
--- NOTE | 2022-08-26 21:20 | EKG12_ITS ---
Test Reason : SVT Blood Pressure : / mmHG Vent. Rate : 100 BPM Atrial Rate : 100 BPM P-R Int : 158 ms QRS Dur : 086 ms QT Int : 340 ms P-R-T Axes : 102 005 002 degrees QTc Int : 438 ms Normal sinus rhythm Nonspecific T wave abnormality Abnormal ECG When compared with ECG of 26-AUG-2022 07:32, MANUAL COMPARISON REQUIRED, DATA IS UNCONFIRMED Confirmed by LC HOFFMAN, LAURA ([id number]), sports editor YUNIOR NORIEGA ([id number]) on 08/29/2022 11:45:43 AM Referred By: AVLEINO Confirmed By:JAZZ PLATT MD
[2022-08-26] MEDS: Topiramate 100 MG Tablet PO (21:28)
[2022-08-26] MEDS: Nortriptyline 10 MG Capsule PO (21:29)
[2022-08-26] MEDS: 0.9% Normal Saline 1,000 ML 175 ML IV ×2 (21:29→22:42)
[2022-08-26] MEDS: lamoTRIgine 100 MG Tablet 200 MG PO (21:29)
[2022-08-26] MEDS: Gabapentin 300 MG Capsule PO (21:36)
[2022-08-26] MEDS: clonazePAM 0.5 MG Tablet 0.25 MG PO (21:36)
--- NOTE | 2022-08-26 22:02 | PCM.HOSP.N ---
Hospitalist Note Asymptomatic episode VT, spontaneously resolved. Will obtain mag and TSH level, place on telemetry, EKG with ST currently rate 104, will place on low dose BB therapy and also cycle cardiac enzymes. If recurrent will request cardiology consultation and transition to PCU.
[2022-08-26] MEDS: Metoprolol Tartrate 25 MG Tablet 12.5 MG PO (22:43)
[2022-08-26 23:07] LABS: Magnesium 1.8 mg/dL (1.6-2.6); Troponin-I HS 35 pg/mL (3.0-78.0)
[2022-08-27] VITALS (11 sets, daily range): BP systolic 127–136; BP diastolic 67–87; PULSE 77–159; RESP 16–18; TEMP 36.5–36.7; O2SAT 92–98
[2022-08-27 00:28] LABS: Troponin-I HS 35 pg/mL (3.0-78.0)
--- NOTE | 2022-08-27 02:00 | NURSING ---
pt still having little burst of svt hr 140 to 170s. very short live. dr montenegro notified.
[2022-08-27 04:50] LABS: Thyroid Stim Hormone (TSH) 0.14 uIU/mL (0.358-3.74); Troponin-I HS 33 pg/mL (3.0-78.0)
--- NOTE | 2022-08-27 06:59 | PCM.PN.SRG ---
Subjective Subjective Patient still confused this morning. He had runs of SVT overnight. He is not complaining of abdominal pain. Objective Data Objective Data Vital Signs: Vital Signs Temp Pulse Resp BP Pulse Ox O2 Del Method O2 Flow Rate 98.1 F 105 H 18 135/77 H 92 Room Air 3 08/27/22 02:01 08/27/22 02:01 08/27/22 02:01 08/27/22 02:01 08/27/22 02:01 08/27/22 02:01 08/26/22 10:59 Oxygen Flow Rate (L/min) 3 Oxygen Delivery Method Room Air Weight: 147 lb 4.301 oz Body Mass Index (BMI) 21.8 Intake & Output: Intake and Output for Last 24 Hours 08/25/22 08/26/22 08/27/22 23:59 23:59 23:59 Intake Total 1210 / 1210 5907.50 / 5937.50 60 / 60 Output Total 2100 / 2100 350 / 350 Balance 1210 / 960 3807.50 / 3837.50 -290 / -290 Lab / Micro Data 08/26/22 05:02 08/26/22 05:02 Labs: Laboratory Results - last 24 hr 08/26/22 05:02: Levetiracetam Cancelled 08/26/22 10:25: Magnesium 1.8, Troponin I High Sens 35 08/26/22 23:55: Troponin I High Sens 35 08/27/22 04:08: Troponin I High Sens 33, TSH 0.14 L Physical Exam Resp normal respiratory effort GI soft to palpation Inspection: Negative for abdominal distention Assessment & Plan Assessment/Plan (1) Complete small bowel obstruction: PLAN: Patient had a small bowel obstruction due to foreign object. I did a small bowel resection yesterday morning. I will start clear liquids today. I would like him to take it slow. Patient had SVT overnight. Troponins are negative. Patient still confused. Todd Saldana MD Pager: [facility] [address] [place] [address], [address] [place] [address] Office:
[2022-08-27 08:39] LABS: Absolute Lymphocyte Count 1.31 X10^3/uL (0.83-4.51); Absolute Neutrophil Count 8.1 X10^3/uL (2.0-7.7); Basophil# 0.03 X10^3/uL; Basophil% 0.3 % (0-1); Hematocrit 38.7 % (40-54); Hemoglobin 12.9 g/dL (13.0-16.5); Lymphocyte # 1.31 X10^3/ul (0.83-4.51); Lymphocyte % 12.5 % (19-41); Mean Corp Hgb Conc 33.3 g/dL (32-36); Mean Corpuscular Hgb 32.6 pg (27.0-32.0); Mean Corpuscular Volume 97.7 fL (80-94); Mean Platelet Vol. 10.5 fl (6.2-12.0); Monocyte# 0.92 X10^3/uL; Monocyte% 8.8 % (0-10); NRBC Flagged by Analyzer 0 % (0-5); Neutrophil # 8.11 X10^3/uL (2.7-7.7); Neutrophil % 77.4 % (47-70); POSITIVE MORPHOLOGY YES; Platelet Count 202 K/mm3 (150-450); RBC Distribution Width CV 13.2 % (11.6-14.6); RBC Distribution Width SD 47.7 fl (35.1-43.9); Red Blood Count 3.96 M/mm3 (4.6-6.2); White Blood Count 10.5 K/mm3 (4.4-11.0)
[2022-08-27 08:40] LABS: Differential Indicated SCAN CRITERIA MET
[2022-08-27 08:52] LABS: Anion Gap 6 (5-15); BUN 29 mg/dL (7-18); BUN/Creat Ratio 28.7 RATIO (10-20); Calcium,Total 8.3 mg/dL (8.5-10.1); Chloride 118 mmol/L (98-107); Creatinine, Serum 1.01 mg/dL (0.70-1.30); EST Glomerular Filtration Rate 80 mL/min (>60); Est Glom Filt Rate - Afr Amer 97 mL/min (>60); Estimated Creatinine Clearance 75.32 ml/min; Glucose 109 mg/dL (74-106); Potassium 3.5 mmol/L (3.5-5.1); Sodium Level 148 mmol/L (136-145)
--- NOTE | 2022-08-27 09:18 | NURSING ---
Dr Ibarra assessing pt, viewed EKG strip and is aware pt is complaining of chest pain, said to give the lopressor and monitor.
[2022-08-27] MEDS: Heparin Injection (Vial) 5,000 UNIT/ML VIAL 5000 UNIT SC ×2 (09:23→21:26)
[2022-08-27] MEDS: Topiramate 100 MG Tablet PO ×2 (09:24→21:35)
[2022-08-27] MEDS: Gabapentin 300 MG Capsule PO ×2 (09:24→21:24)
[2022-08-27] MEDS: Metoprolol Tartrate 25 MG Tablet PO ×2 (09:24→21:25)
[2022-08-27] MEDS: FLUoxetine 20 MG Capsule PO (09:24)
--- NOTE | 2022-08-27 10:53 | CASEMGMT ---
RIKKI TAPIA Assessment: Face to Face with pt for initial transition planning/care coordination assessment. RN WILLIE introduced self and role at [facility], pt voices understanding and consents to assessment. Pt is A/O x4 and answers all questions appropriately at this time yet slow. Care providers, pharmacy, and demographics verified/updated. Admitting Dx: SBO PCP:Donnie Specialists:Pt states he sees 2 specialists for his epilepsy but does not know the names. Preferred Pharmacy: [facility] Insurance: [employer] [facility] Prescription Benefit: yes LNOK: Gunner Stephenson, friend Living Arrangements: Pt lives alone in a mobile home with 4 steps to enter with a rail. Pt reports he is I in ADL's and denies concerns at home. Transportation: Pt drives self and denies concerns with transportation. DME/HHC/SNF: Pt denies having any DME, previous HHC or SNF stays. Pt states no concerns with going home at time of dc. Pt works receptionist doctor's office. Pt did ask for AL information, notified SW. Pt states no further concerns/needs. CM to follow. Advised pt to ask CM if any further question/concerns/needs arise, voices understanding. Pt Goal:Home Plan: Home
[2022-08-27] MEDS: lamoTRIgine 100 MG Tablet 200 MG PO ×2 (12:03→21:25)
--- NOTE | 2022-08-27 12:12 | PN.HOSP_ITS ---
Reason for Visit Reason for Visit: Mr. Noriega is a 56-year-old white male who presented to the emergency department at [facility] on 08/25/2022 with nausea, vomiting, and generalized abdominal pain. It started about 48 hours prior to presentation. He denied any diarrhea or hematemesis on presentation. Work-up upon presentation in the emergency department showed leukocytosis with a white count of 14.2. His chemistry panel was unremarkable. A CT of the abdomen and pelvis was performed and showed dilated small bowel loops with normal caliber distal ileal loops consistent with a high-grade distal small bowel obstruction. An NG was inserted in the emergency department and the patient was evaluated by general surgery and admitted to the medical floor. CT review of the CAT scan showed what appeared to be a very large brown object that was causing obstruction in the mid small bowel. When CTs from May reviewed, it appeared that the round object within his stomach at the pylorus at that time. On 08/26/2022 the patient was found to have sinus tachycardia and IV Lopressor was given which has since been transiti oned to oral Lopressor as the patient is now allowed to take p.o. He was taken to the OR on the afternoon of 08/26/2022 at which time an exploratory laparotomy with small bowel resection was performed. A small soft foreign object was immediately identified and appeared to be causing a obstruction. It was unfortunately too large to remove and repair the bowel so small bowel resection was pursued. Patient is now postop day 1 and initiated on a clear liquid diet. The patient has some persistent confusion. He denies any alcohol intake. At the time of my evaluation he was alert and oriented to self and place but not time. Objective Data Objective Data Vital Signs: Vital Signs Temp Pulse Resp BP Pulse Ox O2 Del Method O2 Flow Rate 97.7 F L 90 18 135/67 H 93 Room Air 3 08/27/22 08:56 08/27/22 09:24 08/27/22 08:56 08/27/22 08:56 08/27/22 08:56 08/27/22 09:02 08/26/22 10:59 Oxygen Flow Rate (L/min) 3 Oxygen Delivery Method Room Air Weight: 66.8 kg Body Mass Index (BMI) 21.8 Intake & Output: Intake and Output for Last 24 Hours 08/25/22 08/26/22 08/27/22 23:59 23:59 23:59 Intake Total 1210 / 1210 5907.50 / 5937.50 1060 / 1060 Output Total 2100 / 2100 350 / 350 Balance 1210 / 960 3807.50 / 3837.50 710 / 710 Lab / Micro Data 08/27/22 04:08 08/27/22 04:08 Labs: Laboratory Results - last 24 hr 08/26/22 10:25: Magnesium 1.8, Troponin I High Sens 35 08/26/22 23:55: Troponin I High Sens 35 08/27/22 04:08: WBC 10.5, RBC 3.96 L, Hgb 12.9 L, Hct 38.7 L, MCV 97.7 H, MCH 32.6 H, MCHC 33.3, RDW Std Deviation 47.7 H, RDW Coeff of [place] 13.2, Plt Count 202, MPV 10.5, Immature Gran % (Auto) 1.000 H, Neut % (Auto) 77.4 H, Lymph % (Auto) 12.5 L, [place] % (Auto) 8.8, Eos % (Auto) 0.0, Baso % (Auto) 0.3, Absolute Neuts (auto) 8.1 H, Absolute Lymphs (auto) 1.31, Nucleated RBC % 0, Differential Comment , Sodium 148 H, Potassium 3.5, Chloride 118 H, Carbon Dioxide 24.0, Anion Gap 6, BUN 29 H, Creatinine 1.01, Estim Creat Clear Calc 75.32, Est GFR (MDRD) Af Amer 97, Est GFR (MDRD) Non-Af 80, BUN/Creatinine Ratio 28.7 H, Glucose 109 H, Calcium 8.3 L, Troponin I High Sens 33, TSH 0.14 L Physical Exam Const alert and average body habitus Constitutional Narrative: Oriented to self and place but not time, somewhat groggy, no distress at this ti me, appears older than stated age HEENT head/scalp atraumatic, moist oral mucous membranes and oropharynx normal HEENT Narrative: Edentulous, tongue is orange from recent orange Jell-O intake Head and Scalp: normocephalic Resp normal respiratory effort, no retractions, no use of accessory muscles and clear to auscultation bilaterally Resp Narrative: Diffusely diminished but clear Auscultation: rales, rhonchi and wheezes Cardio regular rate, regular rhythm, S1 normal heart sound, S2 normal heart sound, no rub, no gallops and no clicks Cardio Narrative: 2 out of 6 systolic murmur loudest at left lower sternal border GI GI Narrative: Bowel sounds are hypoactive, abdomen is soft, no significant distention, midline incision with dressing in place that is clean dry and intact Auscultation: hypoactive bowel sounds Extremity no clubbing, cyanosis or edema Extremity Narrative: Pedal pulses are 2+ Neuro CN's II-XII intact bilaterally, moves all extremities and no focal motor deficits Neuro Narrative: Speech is clear however somewhat garbled Sensorium / Orientation: awake, alert, oriented to person and oriented to place Psych Psych Narrative: Affect is flat Assessment & Plan Assessment/Plan (1) Complete small bowel obstruction: (2) SVT (supraventricular tachycardia): (3) Toxic metabolic encephalopathy: PLAN: Plan Complete small bowel obstruction -Postop day 1 -Small bowel removed from intestines -Clear liquid diet initiated -Discontinue morphine and transition to oral opiates -Await bowel recovery for advancement of diet SVT -Patient with very intermittent bouts of SVT -Continue metoprolol but increase to 25 mg p.o. twice daily -TSH is low at 0.14--> check free T4 as this may be euthyroid sick -Continue to monitor on telemetry -If persistent may need echocardiogram -trop unremarkable when cycled with initial SVT event Metabolic/toxic encephalopathy -Patient with some ongoing postoperative confusion -? Opiates/sedation for surgery -Discontinue IV morphine -Start as needed oxycodone -Continue to monitor clinically -Patient denies any alcohol abuse history History of seizure disorder -Continue home gabapentin -Continue home Lamictal -Continue home Topamax Anxiety/depression -Continue home amitriptyline -Continue home fluoxetine -Continue home Klonopin Tobacco abuse -Remote -Encourage continued cessation DVT prophylaxis -Continue subcu heparin CODE STATUS -Full code Charges/Coding Visit Charges Inpatient E&M: 03222 Subs Hosp L2
[2022-08-27 13:06] LABS: T4 Free Direct 1.45 ng/dL (0.76-1.46)
--- NOTE | 2022-08-27 13:20 | CASEMGMT ---
Social Work Pt inquiring about information for assisted living. SW met with pt and provided written information on local assisted living facilities and answered pt questions. Pt denies any other needs at this time. NANCI Monroe
--- NOTE | 2022-08-27 14:26 | CHAPLAIN ---
Type of Pastoral Visit _x__ Initial Visit ___ Follow-up Visit ___ On-call Visit ___ General Patient Visit ___ Spiritual Assessment ___ Family Conference ___ Bereavement ___ Rapid Response ___ Code Blue ___ Other (describe below) Pastoral Care Referral From _x__ Patient ___ Family ___ Nurse ___ Physician ___ Client Support Manager ___ Marketing Engineer ___ Other (describe below) Sacrament/Intervention _x__ Active listening ___ Anointing ___ Scientology ___ Bereavement ___ Communion ___ Zeynep exploration ___ ___ Life review _x__ Prayer ___ Reconciliation ___ Sacrament of Sick _x__ Supportive presence ___ Wedding ___ Other (describe below) Pastoral Comments patient could recount why he came to hospital and how he felt then and now; pt was slow to answer some questions and slow to dialogue with this welfare aide; waited for pt to respond and engage; pt does repeat that he felt the worst ever in his life; pt states he has no family around for help but that he does work; pt is welcoming of a prayer for support
[2022-08-27] MEDS: 0.9% Normal Saline 1,000 ML 75 ML IV (21:06)
[2022-08-27] MEDS: Nortriptyline 10 MG Capsule PO (21:30)
[2022-08-27] MEDS: clonazePAM 0.5 MG Tablet 0.25 MG PO (21:34)
[2022-08-27] MEDS: Metoprolol Tartrate 5 MG/5 ML Vial IV (22:23)
[2022-08-28] VITALS (7 sets, daily range): BP systolic 95–132; BP diastolic 48–71; PULSE 67–77; RESP 16–18; TEMP 36.4–36.9; O2SAT 96–98
--- NOTE | 2022-08-28 01:10 | EKG12_ITS ---
Test Reason : PRE-OP Blood Pressure : / mmHG Vent. Rate : 097 BPM Atrial Rate : 097 BPM P-R Int : 158 ms QRS Dur : 086 ms QT Int : 348 ms P-R-T Axes : 026 -19 107 degrees QTc Int : 441 ms Normal sinus rhythm ST & T wave abnormality, consider anterior ischemia Abnormal ECG When compared with ECG of 07-JUN-2022 15:53, ST now depressed in Anterior leads T wave inversion now evident in Anterior leads Confirmed by LC HOFFMAN, LAURA ([id number]), editorial manager YUNIOR NORIEGA ([id number]) on 08/29/2022 11:45:56 AM Referred By: RENE Confirmed By:JAZZ PLATT MD
[2022-08-28 07:01] LABS: Absolute Lymphocyte Count 1.98 X10^3/uL (0.83-4.51); Absolute Neutrophil Count 8.7 X10^3/uL (2.0-7.7); Basophil# 0.04 X10^3/uL; Basophil% 0.3 % (0-1); Eosinophil# 0.11 X10^3/uL; Eosinophils% 0.9 % (0-5); Hematocrit 35.4 % (40-54); Lymphocyte # 1.98 X10^3/ul (0.83-4.51); Lymphocyte % 16.3 % (19-41); Mean Corp Hgb Conc 33.9 g/dL (32-36); Mean Corpuscular Hgb 32.5 pg (27.0-32.0); Mean Corpuscular Volume 95.9 fL (80-94); Monocyte# 1.11 X10^3/uL; Monocyte% 9.1 % (0-10); NRBC Flagged by Analyzer 0 % (0-5); Neutrophil # 8.73 X10^3/uL (2.7-7.7); Neutrophil % 71.8 % (47-70); POSITIVE MORPHOLOGY YES; Platelet Count 184 K/mm3 (150-450); RBC Distribution Width CV 13.2 % (11.6-14.6); RBC Distribution Width SD 47.1 fl (35.1-43.9); Red Blood Count 3.69 M/mm3 (4.6-6.2); White Blood Count 12.2 K/mm3 (4.4-11.0)
[2022-08-28 07:09] LABS: Differential Indicated SCAN CRITERIA MET
[2022-08-28 07:28] LABS: Anion Gap 3 (5-15); BUN 20 mg/dL (7-18); BUN/Creat Ratio 27.2 RATIO (10-20); Calcium,Total 8.1 mg/dL (8.5-10.1); Chloride 118 mmol/L (98-107); Creatinine, Serum 0.74 mg/dL (0.70-1.30); EST Glomerular Filtration Rate 116 mL/min (>60); Est Glom Filt Rate - Afr Amer 140 mL/min (>60); Estimated Creatinine Clearance 102.81 ml/min; Glucose 102 mg/dL (74-106); Potassium 3.1 mmol/L (3.5-5.1); Sodium Level 142 mmol/L (136-145)
--- NOTE | 2022-08-28 08:30 | PCM.PN.SRG ---
Subjective Subjective Patient reports feeling heavy in his stomach. Objective Data Objective Data Vital Signs: Vital Signs Temp Pulse Resp BP Pulse Ox O2 Del Method O2 Flow Rate 98.2 F 75 16 125/64 H 97 Nasal Cannula 2 08/28/22 03:53 08/28/22 03:53 08/28/22 03:53 08/28/22 03:53 08/28/22 03:53 08/28/22 03:53 08/28/22 03:53 Oxygen Flow Rate (L/min) 2 Oxygen Delivery Method Nasal Cannula Weight: 147 lb 4.301 oz Body Mass Index (BMI) 21.8 Intake & Output: Intake and Output for Last 24 Hours 08/26/22 08/27/22 08/28/22 23:59 23:59 23:59 Intake Total 5907.50 / 5937.50 2029 / 2329 900 / 900 Output Total 2100 / 2100 350 / 350 Balance 3807.50 / 3837.50 1679 / 1979 900 / 900 Lab / Micro Data 08/28/22 06:30 08/28/22 06:30 Labs: Laboratory Results - last 24 hr 08/27/22 04:08: WBC 10.5, RBC 3.96 L, Hgb 12.9 L, Hct 38.7 L, MCV 97.7 H, MCH 32.6 H, MCHC 33.3, RDW Std Deviation 47.7 H, RDW Coeff of [place] 13.2, Plt Count 202, MPV 10.5, Immature Gran % (Auto) 1.000 H, Neut % (Auto) 77.4 H, Lymph % (Auto) 12.5 L, [place] % (Auto) 8.8, Eos % (Auto) 0.0, Baso % (Auto) 0.3, Absolute Neuts (auto) 8.1 H, Absolute Lymphs (auto) 1.31, Nucleated RBC % 0, Differential Comment , Sodium 148 H, Potassium 3.5, Chloride 118 H, Carbon Dioxide 24.0, Anion Gap 6, BUN 29 H, Creatinine 1.01, Estim Creat Clear Calc 75.32, Est GFR (MDRD) Af Amer 97, Est GFR (MDRD) Non-Af 80, BUN/Creatinine Ratio 28.7 H, Glucose 109 H, Calcium 8.3 L, Free T4 1.45 08/28/22 06:30: WBC 12.2 H, RBC 3.69 L, Hgb 12.0 L, Hct 35.4 L, MCV 95.9 H, MCH 32.5 H, MCHC 33.9, RDW Std Deviation 47.1 H, RDW Coeff of [place] 13.2, Plt Count 184, MPV 11.0, Immature Gran % (Auto) 1.600 H, Neut % (Auto) 71.8 H, Lymph % (Auto) 16.3 L, [place] % (Auto) 9.1, Eos % (Auto) 0.9, Baso % (Auto) 0.3, Absolute Neuts (auto) 8.7 H, Absolute Lymphs (auto) 1.98, Nucleated RBC % 0, Sodium 142, Potassium 3.1 L, Chloride 118 H, Carbon Dioxide 21.0, Anion Gap 3 L, BUN 20 H, Creatinine 0.74, Estim Creat Clear Calc 102.81, Est GFR (MDRD) Af Amer 140, Est GFR (MDRD) Non-Af 116, BUN/Creatinine Ratio 27.2 H, Glucose 102, Calcium 8.1 L Physical Exam Const no apparent distress Resp normal respiratory effort Cardio regular rate and regular rhythm GI soft to palpation Inspection: abdominal distention Palpation: tender Assessment & Plan Assessment/Plan (1) Complete small bowel obstruction: PLAN: The patient seems to be distended this morning. His incision seems clean but his white count went up. He is hiccuping when I went in there so I took his clear tray away and I told her to just do sips of clears. He did have a bowel movement but his small bowel may not be functional yet. I would continue sips until it his distention decreases. He is okay for sips and oral meds. Potassium was low so I will replace that. Check mag and Phos in the morning. Todd Saldana MD Pager: [facility] [address] [place] [address], [address] [place] [address] Office:
[2022-08-28] MEDS: Metoprolol Tartrate 25 MG Tablet PO ×2 (08:37→21:53)
[2022-08-28] MEDS: FLUoxetine 20 MG Capsule PO (08:37)
[2022-08-28] MEDS: lamoTRIgine 100 MG Tablet 200 MG PO ×2 (08:37→21:54)
[2022-08-28] MEDS: Heparin Injection (Vial) 5,000 UNIT/ML VIAL 5000 UNIT SC ×2 (08:37→21:53)
[2022-08-28] MEDS: Topiramate 100 MG Tablet PO ×2 (08:38→21:55)
[2022-08-28 09:19] LABS: Differential Comment SCANNED
[2022-08-28] MEDS: Potassium Chloride 10mEq/100mL 10 MEQ/100 ML IV.SOLN. 100 MEQ IV BOLUS ×3 (10:22→12:30)
[2022-08-28] MEDS: Gabapentin 300 MG Capsule PO ×2 (10:22→21:50)
--- NOTE | 2022-08-28 13:53 | PN.HOSP_ITS ---
Reason for Visit Reason for Visit: Abdominal pain/nausea/vomiting Subjective Subjective Patient abdomen distended this morning and having some burping and epigastric pain. His ongoing somnolence but awakens and is alert and oriented x3 but quickly drifts on back to sleep. Placed on sips and chips by general surgery this morning and awaiting return of bowel function. Objective Data Objective Data Vital Signs: Vital Signs Temp Pulse Resp BP Pulse Ox O2 Del Method O2 Flow Rate 97.5 F L 72 18 132/71 H 97 Room Air 2 08/28/22 10:00 08/28/22 11:00 08/28/22 10:00 08/28/22 10:00 08/28/22 10:00 08/28/22 10:00 08/28/22 03:53 Oxygen Flow Rate (L/min) 2 Oxygen Delivery Method Room Air Weight: 66.8 kg Body Mass Index (BMI) 21.8 Intake & Output: Intake and Output for Last 24 Hours 08/26/22 08/27/22 08/28/22 23:59 23:59 23:59 Intake Total 5907.50 / 5937.50 2029 / 2329 2200 / 2200 Output Total 2100 / 2100 350 / 350 Balance 3807.50 / 3837.50 1678 / 1978 2200 / 2200 Lab / Micro Data 08/28/22 06:30 08/28/22 06:30 Labs: Laboratory Results - last 24 hr 08/28/22 06:30: WBC 12.2 H, RBC 3.69 L, Hgb 12.0 L, Hct 35.4 L, MCV 95.9 H, MCH 32.5 H, MCHC 33.9, RDW Std Deviation 47.1 H, RDW Coeff of [place] 13.2, Plt Count 184, MPV 11.0, Immature Gran % (Auto) 1.600 H, Neut % (Auto) 71.8 H, Lymph % (Auto) 16.3 L, [place] % (Auto) 9.1, Eos % (Auto) 0.9, Baso % (Auto) 0.3, Absolute Neuts (auto) 8.7 H, Absolute Lymphs (auto) 1.98, Nucleated RBC % 0, Differential Comment SCANNED, Sodium 142, Potassium 3.1 L, Chloride 118 H, Carbon Dioxide 21.0, Anion Gap 3 L, BUN 20 H, Creatinine 0.74, Estim Creat Clear Calc 102.81, E st GFR (MDRD) Af Amer 140, Est GFR (MDRD) Non-Af 116, BUN/Creatinine Ratio 27.2 H, Glucose 102, Calcium 8.1 L 08/28/22 12:05: Ammonia 44.0 H Physical Exam Const alert, oriented x3, no apparent distress and average body habitus Constitutional Narrative: Alert and oriented x3 currently, remains somewhat groggy, no distress at this time, appears older than stated age, nursing at bedside HEENT normocephalic, head/scalp atraumatic, hearing grossly normal bilaterally, moist oral mucous membranes and oropharynx normal Resp normal respiratory effort, no retractions, no use of accessory muscles and clear to auscultation bilaterally Resp Narrative: Diffusely diminished but clear Auscultation: Negative for rales, rhonchi or wheezes Cardio regular rate, regular rhythm, S1 normal heart sound, S2 normal heart sound, no murmurs, no rub, no gallops and no clicks Cardio Narrative: 2 out of 6 systolic murmur loudest at left lower sternal border GI soft to palpation GI Narrative: Bowel sounds are hypoactive, abdomen is soft, mild distention today, midline incision is clean dry and intact with ABD removed Auscultation: hypoactive bowel sounds Extremity no clubbing, cyanosis or edema Extremity Narrative: Pedal pulses are 2+ Neuro moves all extremities and no focal motor deficits Neuro Narrative: Speech is clearer today Sensorium / Orientation: awake, alert, oriented to person, oriented to place and oriented to time Psych Psych Narrative: Affect is flat Assessment & Plan Assessment/Plan (1) Complete small bowel obstruction: (2) SVT (supraventricular tachycardia): (3) Toxic metabolic encephalopathy: PLAN: Plan Complete small bowel obstruction -Postop day 2 -Small bowel removed from intestines -Diet changed to sips and chips due to distention and suspected postoperative ileus -Await return of bowel function Leukocytosis -Mild -Etiology is unclear at this time -Up to 12.2 from 10.5 yesterday -Neutrophilia is actually improved -No signs of infection currently -Repeat CBC in a.m. to trend SVT -Patient with very intermittent bouts of SVT -Much improved with addition of beta-herve -Continue metoprolol 25 mg p.o. twice daily -TSH is low at 0.14--> free T4 is within normal limits so suspect euthyroid sick syndrome -Continue to monitor on telemetry -If persistent may need echocardiogram -trop unremarkable when cycled with initial SVT event Metabolic/toxic encephalopathy -Seems to be improved today but not to baseline -? Opiates/sedation for surgery -Check ammonia level -If elevated will have to start lactulose if okay with general surgery -Continue as needed oxycodone -Continue to monitor clinically -Patient denies any alcohol abuse history History of seizure disorder -Continue home gabapentin -Continue home Lamictal -Continue home Topamax Anxiety/depression -Continue home amitriptyline -Continue home fluoxetine -Continue home Klonopin Tobacco abuse -Remote -Encourage continued cessation DVT prophylaxis -Continue subcu heparin CODE STATUS -Full code Charges/Coding Visit Charges Inpatient E&M: 93159 Subs Hosp L2
[2022-08-28] MEDS: Dextrose 5%/0.9% NaCl 1,000 ML 70 ML IV (13:55)
[2022-08-28] MEDS: clonazePAM 0.5 MG Tablet 0.25 MG PO (21:50)
[2022-08-28] MEDS: Nortriptyline 10 MG Capsule PO (21:53)
[2022-08-29] MEDS: Dextrose 5%/0.9% NaCl 1,000 ML 70 ML IV (03:27)
[2022-08-29 03:40] VITALS: BP 103/57; PULSE 63; RESP 16; TEMP 36.9; O2SAT 94
[2022-08-29 07:00] LABS: Absolute Lymphocyte Count 2.21 X10^3/uL (0.83-4.51); Absolute Neutrophil Count 7.1 X10^3/uL (2.0-7.7); Basophil# 0.03 X10^3/uL; Basophil% 0.3 % (0-1); Eosinophils% 1.9 % (0-5); Hematocrit 31.8 % (40-54); Hemoglobin 10.8 g/dL (13.0-16.5); Lymphocyte # 2.21 X10^3/ul (0.83-4.51); Mean Corpuscular Hgb 32.5 pg (27.0-32.0); Mean Corpuscular Volume 95.8 fL (80-94); Mean Platelet Vol. 11.2 fl (6.2-12.0); Monocyte# 0.84 X10^3/uL; NRBC Flagged by Analyzer 0 % (0-5); Neutrophil # 7.12 X10^3/uL (2.7-7.7); Neutrophil % 67.6 % (47-70); Platelet Count 147 K/mm3 (150-450); RBC Distribution Width CV 13.2 % (11.6-14.6); RBC Distribution Width SD 46.6 fl (35.1-43.9); Red Blood Count 3.32 M/mm3 (4.6-6.2); White Blood Count 10.5 K/mm3 (4.4-11.0)
[2022-08-29 07:46] LABS: Anion Gap 2 (5-15); BUN 16 mg/dL (7-18); BUN/Creat Ratio 20.6 RATIO (10-20); Calcium,Total 7.4 mg/dL (8.5-10.1); Chloride 121 mmol/L (98-107); Creatinine, Serum 0.78 mg/dL (0.70-1.30); EST Glomerular Filtration Rate 109 mL/min (>60); Est Glom Filt Rate - Afr Amer 132 mL/min (>60); Estimated Creatinine Clearance 97.54 ml/min; Glucose 93 mg/dL (74-106); Magnesium 1.9 mg/dL (1.6-2.6); Phosphorus 0.8 mg/dL (2.5-4.9); Potassium 2.9 mmol/L (3.5-5.1); Sodium Level 145 mmol/L (136-145)
--- NOTE | 2022-08-29 07:59 | PN.SURG_ITS ---
Subjective Subjective Patient had several bowel movements. He reports feeling less bloated. Objective Data Objective Data Vital Signs: Vital Signs Temp Pulse Resp BP Pulse Ox O2 Del Method O2 Flow Rate 98.4 F 63 16 103/57 L 94 Room Air 2 08/29/22 03:40 08/29/22 03:40 08/29/22 03:40 08/29/22 03:40 08/29/22 03:40 08/29/22 03:40 08/28/22 03:53 Oxygen Flow Rate (L/min) 2 Oxygen Delivery Method Room Air Weight: 147 lb 4.301 oz Body Mass Index (BMI) 21.8 Intake & Output: Intake and Output for Last 24 Hours 08/27/22 08/28/22 08/29/22 23:59 23:59 23:59 Intake Total 2028 / 2328 2310 / 2310 947.33 / 947.33 Output Total 350 / 350 Balance 1678 / 1978 2310 / 2310 947.33 / 947.33 Lab / Micro Data 08/29/22 06:19 08/29/22 06:19 Labs: Laboratory Results - last 24 hr 08/28/22 06:30: Differential Comment SCANNED 08/28/22 12:05: Ammonia 44.0 H 08/29/22 06:19: WBC 10.5, RBC 3.32 L, Hgb 10.8 L, Hct 31.8 L, MCV 95.8 H, MCH 32.5 H, MCHC 34.0, RDW Std Deviation 46.6 H, RDW Coeff of [place] 13.2, Plt Count 147 L, MPV 11.2, Immature Gran % (Auto) 1.200 H, Neut % (Auto) 67.6, Lymph % (Auto) 21.0, [place] % (Auto) 8.0, Eos % (Auto) 1.9, Baso % (Auto) 0.3, Absolute Neuts (auto) 7.1, Absolute Lymphs (auto) 2.21, Nucleated RBC % 0, Sodium 145, Potassium 2.9 L, Chloride 121 H, Carbon Dioxide 22.0, Anion Gap 2 L, BUN 16, Creatinine 0.78, Estim Creat Clear Calc 97.54, Est GFR (MDRD) Af Amer 132, Est GFR (MDRD) Non-Af 109, BUN/Creatinine Ratio 20.6 H, Glucose 93, Calcium 7.4 L, Phosphorus 0.8 L*, Magnesium 1.9 Physical Exam Const oriented x3 Resp normal respiratory effort GI soft to palpation Inspection: Negative for abdominal distention Assessment & Plan Assessment/Plan (1) Complete small bowel obstruction: PLAN: The patient had several bowel movements. He is less distended. Patient has hypokalemia and hypophosphatemia. Both will be replaced. I will advance him to a full liquid diet today. If he tolerates this may advance diet further later today. Todd Saldana MD Pager: [facility] [address] [place] [address], [address] [place] [address] Office:
[2022-08-29 09:31] VITALS: BP 115/67; PULSE 67; RESP 18; TEMP 36.5; O2SAT 98
[2022-08-29 09:41] VITALS: PULSE 67
[2022-08-29] MEDS: lamoTRIgine 100 MG Tablet 200 MG PO ×2 (09:41→22:29)
[2022-08-29] MEDS: Heparin Injection (Vial) 5,000 UNIT/ML VIAL 5000 UNIT SC ×2 (09:41→22:29)
[2022-08-29] MEDS: Metoprolol Tartrate 25 MG Tablet PO ×2 (09:41→22:30)
[2022-08-29] MEDS: Topiramate 100 MG Tablet PO ×2 (09:42→22:29)
[2022-08-29] MEDS: FLUoxetine 20 MG Capsule PO (09:42)
[2022-08-29] MEDS: Gabapentin 300 MG Capsule PO ×2 (09:46→22:28)
[2022-08-29 11:00] VITALS: PULSE 66
[2022-08-29 14:19] VITALS: BP 108/57; PULSE 71; RESP 18; TEMP 36.6; O2SAT 94
--- NOTE | 2022-08-29 17:41 | PCM.PN.HOSP ---
Reason for Visit Reason for Visit: Nausea/vomiting/abdominal pain Subjective Subjective Patient is feeling better today. Several bowel movements over the last 24 hours. Diet has been advanced to full liquids with intent to advance to regular diet if tolerates full liquids. Patient is asking to take a shower. Objective Data Objective Data Vital Signs: Vital Signs Temp Pulse Resp BP Pulse Ox O2 Del Method O2 Flow Rate 97.8 F 71 18 108/57 L 94 Room Air 2 08/29/22 14:08/29/22 14:08/29/22 14:08/29/22 14:08/29/22 14:08/29/22 14:08/28/22 03:53 Oxygen Flow Rate (L/min) 2 Oxygen Delivery Method Room Air Weight: 66.8 kg Body Mass Index (BMI) 21.8 Intake & Output: Intake and Output for Last 24 Hours 08/27/22 08/28/22 08/29/22 23:59 23:59 23:59 Intake Total 2028 / 2328 2310 / 2310 1508.83 / 1508.83 Output Total 350 / 350 Balance 1678 / 1978 2310 / 2310 1508.83 / 1508.83 Lab / Micro Data 08/29/22 06:19 08/29/22 06:19 Labs: Laboratory Results - last 24 hr 08/29/22 06:19: WBC 10.5, RBC 3.32 L, Hgb 10.8 L, Hct 31.8 L, MCV 95.8 H, MCH 32.5 H, MCHC 34.0, RDW Std Deviation 46.6 H, RDW Coeff of [place] 13.2, Plt Count 147 L, MPV 11.2, Immature Gran % (Auto) 1.200 H, Neut % (Auto) 67.6, Lymph % (Auto) 21.0, [place] % (Auto) 8.0, Eos % (Auto) 1.9, Baso % (Auto) 0.3, Absolute Neuts (auto) 7.1, Absolute Lymphs (auto) 2.21, Nucleated RBC % 0, Sodium 145, Potassium 2.9 L, Chloride 121 H, Carbon Dioxide 22.0, Anion Gap 2 L, BUN 16, Creatinine 0.78, Estim Creat Clear Calc 97.54, Est GFR (MDRD) Af Amer 132, Est GFR (MDRD) Non-Af 109, BUN/Creatinine Ratio 20.6 H, Glucose 93, Calcium 7.4 L, Phosphorus 0.8 L*, Magnesium 1.9 Physical Exam Const alert, oriented x3, no apparent distress and average body habitus Constitutional Narrative: Upper middle-aged white male, lying in bed, appears much more interactive and comfortable today, nontoxic HEENT normocephalic, head/scalp atraumatic, hearing grossly normal bilaterally, moist oral mucous membranes and oropharynx normal Resp normal respiratory effort, no retractions, no use of accessory muscles and clear to auscultation bilaterally Resp Narrative: Diffusely diminished but clear Auscultation: Negative for rales, rhonchi or wheezes Cardio regular rate, regular rhythm, S1 normal heart sound, S2 normal heart sound, no murmurs, no rub, no gallops and no clicks Cardio Narrative: 2 out of 6 systolic murmur loudest at left lower sternal border GI normal to inspection, nondistended, normoactive bowel sounds and soft to palpation GI Narrative: Midline incision is clean dry and intact, still mild tenderness with palpation, distention has resolved, bowel sounds improved Extremity no clubbing, cyanosis or edema Extremity Narrative: Pedal pulses are 2+ Neuro oriented x3, moves all extremities and no focal motor deficits Neuro Narrative: Speech has returned back to baseline as has mental status Sensorium / Orientation: awake, alert, oriented to person, oriented to place and oriented to time Speech: speech normal Psych Psych Narrative: Affect is flat but patient more interactive and appropriate today Assessment & Plan Assessment/Plan (1) Complete small bowel obstruction: (2) SVT (supraventricular tachycardia): (3) Toxic metabolic encephalopathy: (4) Hypophosphatemia: (5) Hypokalemia: PLAN: Plan Complete small bowel obstruction -Postop day 3 -Small bowel removed from intestines -Bowel function seems to be improving -Full liquid with intent to advance as tolerated -We will have PT and OT evaluate the patient for mobility -Await return of bowel function Hypokalemia -K-Phos given -Repeat BMP in a.m. Hypophosphatemia -K-Phos given -Repeat Phos level in a.m. Leukocytosis -Resolved SVT -Patient with very intermittent bouts of SVT -Resolved today -Continue metoprolol 25 mg p.o. twice daily Metabolic/toxic encephalopathy -Resolved History of seizure disorder -Continue home gabapentin -Continue home Lamictal -Continue home Topamax Anxiety/depression -Continue home amitriptyline -Continue home fluoxetine -Continue home Klonopin Tobacco abuse -Remote -Encourage continued cessation DVT prophylaxis -Continue subcu heparin CODE STATUS -Full code Charges/Coding Visit Charges Inpatient E&M: 57058 Subs Hosp L2
[2022-08-29] MEDS: clonazePAM 0.5 MG Tablet 0.25 MG PO (22:28)
[2022-08-29] MEDS: Nortriptyline 10 MG Capsule PO (22:29)
[2022-08-29 22:30] VITALS: BP 114/67; PULSE 80; RESP 18; TEMP 36.6; O2SAT 96
[2022-08-30] MEDS: oxyCODONE 5 MG Tablet PO (00:10)
[2022-08-30 06:14] LABS: Absolute Lymphocyte Count 1.87 X10^3/uL (0.83-4.51); Absolute Neutrophil Count 7.2 X10^3/uL (2.0-7.7); Basophil# 0.04 X10^3/uL; Basophil% 0.4 % (0-1); Eosinophil# 0.12 X10^3/uL; Eosinophils% 1.1 % (0-5); Hematocrit 33.3 % (40-54); Lymphocyte # 1.87 X10^3/ul (0.83-4.51); Lymphocyte % 17.8 % (19-41); Mean Corpuscular Hgb 31.7 pg (27.0-32.0); Mean Platelet Vol. 10.9 fl (6.2-12.0); Monocyte# 1.11 X10^3/uL; Monocyte% 10.6 % (0-10); NRBC Flagged by Analyzer 0.2 % (0-5); Neutrophil # 7.15 X10^3/uL (2.7-7.7); Neutrophil % 67.9 % (47-70); Platelet Count 166 K/mm3 (150-450); RBC Distribution Width CV 13.1 % (11.6-14.6); RBC Distribution Width SD 46.5 fl (35.1-43.9); Red Blood Count 3.47 M/mm3 (4.6-6.2); White Blood Count 10.5 K/mm3 (4.4-11.0)
[2022-08-30 06:48] LABS: Anion Gap 6 (5-15); BUN 11 mg/dL (7-18); BUN/Creat Ratio 16.5 RATIO (10-20); Calcium,Total 7.5 mg/dL (8.5-10.1); Chloride 119 mmol/L (98-107); Creatinine, Serum 0.67 mg/dL (0.70-1.30); EST Glomerular Filtration Rate 130 mL/min (>60); Est Glom Filt Rate - Afr Amer 157 mL/min (>60); Estimated Creatinine Clearance 113.55 ml/min; Glucose 94 mg/dL (74-106); Phosphorus 3.1 mg/dL (2.5-4.9); Potassium 3.1 mmol/L (3.5-5.1); Sodium Level 144 mmol/L (136-145)
--- NOTE | 2022-08-30 08:38 | PCM.PN.SRG ---
Subjective Subjective Patient is tolerating regular diet. Objective Data Objective Data Vital Signs: Vital Signs Temp Pulse Resp BP Pulse Ox O2 Del Method O2 Flow Rate 97.9 F 80 18 114/67 96 Room Air 2 08/29/22 22:30 08/29/22 22:30 08/29/22 22:30 08/29/22 22:30 08/29/22 22:30 08/29/22 22:30 08/28/22 03:53 Oxygen Flow Rate (L/min) 2 Oxygen Delivery Method Room Air Weight: 147 lb 4.301 oz Body Mass Index (BMI) 21.8 Intake & Output: Intake and Output for Last 24 Hours 08/28/22 08/29/22 08/30/22 23:59 23:59 23:59 Intake Total 2309.1632 Balance 2309 / 2309 Lab / Micro Data 08/30/22 06:08 08/30/22 06:08 Labs: Laboratory Results - last 24 hr 08/30/22 06:08: WBC 10.5, RBC 3.47 L, Hgb 11.0 L, Hct 33.3 L, MCV 96.0 H, MCH 31.7, MCHC 33.0, RDW Std Deviation 46.5 H, RDW Coeff of [place] 13.1, Plt Count 166, MPV 10.9, Immature Gran % (Auto) 2.200 H, Neut % (Auto) 67.9, Lymph % (Auto) 17.8 L, [place] % (Auto) 10.6 H, Eos % (Auto) 1.1, Baso % (Auto) 0.4, Absolute Neuts (auto) 7.2, Absolute Lymphs (auto) 1.87, Nucleated RBC % 0.2, Sodium 144, Potassium 3.1 L, Chloride 119 H, Carbon Dioxide 19.0 L, Anion Gap 6, BUN 11, Creatinine 0.67 L, Estim Creat Clear Calc 113.55, Est GFR (MDRD) Af Amer 157, Est GFR (MDRD) Non-Af 130, BUN/Creatinine Ratio 16.5, Glucose 94, Calcium 7.5 L, Phosphorus 3.1 Physical Exam Const oriented x3 Resp normal respiratory effort GI soft to palpation and non-tender Assessment & Plan Assessment/Plan (1) Complete small bowel obstruction: PLAN: The patient seems to be doing well and tolerating a diet. He may be discharged home today. Follow-up with me in 2 weeks. Todd Saldana MD Pager: [facility] [address] [place] [address], [address] [place] [address] Office:
--- NOTE | 2022-08-30 08:39 | DCINST_ITS ---
Discharge Instructions Diet Discharge Diet: Light diet - advance as tolerated Activity Discharge Activity: May Drive and May Shower Lifting Restrictions: 15 lbs for 4 weeks Dressing / Incision Call your doctor if your incision/area has: Continuous Slow Oozing, Sudden Increased Bleeding, Increased Pain/ Swelling, Increased Redness, Foul Smelling Discharge and Swelling at the incision site Call your doctor if you observe: Fever of 101 or Higher Cleanse incision/area with: Soap & Water Follow Up Care Please Follow Up With: Todd Saldana MD When: Please call to schedule 2 week follow up appointment. [phone] Test Results: Test results from this visit will be discussed in further detail at your follow- up appointment, if applicable. Discharge Plan Admission Admit Date/Time: 08/25/22 18:46 Attending Provider: Desiree Ibarra Primary Care Provider: Jose Fields Consulting Providers: Todd Saldana; Attila Clement Discharge Orders/Prescriptions Prescriptions: New oxycodone 5 mg Tablet 5 mg PO Q6H PRN PRN (Reason: Pain Score 6-10) 5 Days Qty: 20 0RF Continued topiramate 25 mg capsule,extended release 24hr 25 mg PO DAILY lamotrigine 200 MG tablet 200 mg PO BID Patient Comments: TAKE 1 TABLET TWICE DAILY nortriptyline 10 MG capsule 10 mg PO QHS Patient Comments: TAKE ONE CAPSULE BY MOUTH EVERY DAY AT BEDTIME gabapentin 300 MG capsule 300 mg PO BID multivitamin 1 EACH tablet 1 ea PO DAILY Patient Comments: supplement ferrous sulfate 325 MG tablet 325 mg PO DAILY@0800 fluoxetine 20 MG capsule 20 mg PO DAILY lamotrigine 100 MG tablet 100 mg PO TID Patient Comments: pt takes at 0700, 1400, 1900 clonazepam 0.5 tablet 0.25 mg PO QHS baclofen 10 tablet 10 mg PO QHS doxycycline monohydrate 100 MG capsule 100 mg PO BID Qty: 14 0RF Referrals / Follow Up: Jose Fields DO [Primary Care Provider] -
[2022-08-30 09:26] VITALS: BP 113/60; PULSE 86; RESP 16; TEMP 36.7; O2SAT 95
--- NOTE | 2022-08-30 09:31 | PCA ---
Physician Professor Of Counseling Sarah Treadwell called floor to enter work excuse for patient in discharge instructions, dates are as followed 08/25/22-09/24/22
[2022-08-30 09:35] VITALS: PULSE 86
[2022-08-30] MEDS: lamoTRIgine 100 MG Tablet 200 MG PO (09:35)
[2022-08-30] MEDS: Metoprolol Tartrate 25 MG Tablet PO (09:35)
[2022-08-30] MEDS: Topiramate 100 MG Tablet PO (09:36)
[2022-08-30] MEDS: Heparin Injection (Vial) 5,000 UNIT/ML VIAL 5000 UNIT SC (09:36)
[2022-08-30] MEDS: FLUoxetine 20 MG Capsule PO (09:36)
[2022-08-30] MEDS: Gabapentin 300 MG Capsule PO (09:42)
[2022-08-30] MEDS: Potassium Chloride Oral Tablet 20 MEQ 40 MEQ PO (09:42)
[2022-08-30] MEDS: Pantoprazole Sodium 40 MG Tablet PO (11:05)
--- NOTE | 2022-08-30 11:33 | DS.PCM_ITS ---
Providers Date of Admission: 08/25/22 Date of Discharge: 08/30/22 Primary Care Physician: Dr. Jose Fields, Consultations 08/25/22 19:25 Consult: General Surgery Routine Consulting Provider: Todd Saldana Reason for Consult: Small bowel obstruction EMERGENT Consult: No MD Notified: Yes Date Notified: 08/25/22 Time Notified: 18:49 Method of Notification: Verbal Reason For Visit: SMALL BOWEL OBSTRUCTION Diagnosis Discharge Diagnosis (1) Complete small bowel obstruction: Status: Acute Code(s): K56.601 - Complete intestinal obstruction, unspecified as to cause Medications at Discharge Home Medications gabapentin 300 mg capsule 300 mg PO BID 05/14/16 lamotrigine 200 mg tablet 200 mg PO BID 05/14/16 nortriptyline 10 mg capsule 10 mg PO QHS 05/14/16 ferrous sulfate 325 mg (65 mg iron) tablet 325 mg PO DAILY@0800 05/15/16 fluoxetine 20 mg capsule 20 mg PO DAILY 05/15/16 lamotrigine 100 mg tablet 100 mg PO TID 05/15/16 multivitamin 1 ea PO DAILY 05/15/16 topiramate 25 mg capsule,extended release 24 hr 25 mg PO DAILY 11/05/18 baclofen 10 mg tablet 10 mg PO QHS 02/04/19 clonazepam 0.5 mg tablet 0.25 mg PO QHS 02/04/19 doxycycline monohydrate 100 mg capsule 100 mg PO BID #14 caps 04/24/19 oxycodone 10 mg tablet 5 - 10 mg (0.5 - 1 x 10 mg) PO Q6H PRN pain 5 days #10 tabs 08/30/22 Hospital Course Operations - (Exploratory laparotomy with small bowel resection) Procedures EKG and - (CT abdomen and pelvis/KUB) Summary of Care Provided Minutes Spent on Discharge: 37 Hospital Course: Mr. Noriega is a 56-year-old white male who presented to the emergency department at [facility] on 08/25/2022 with nausea, vomiting, and generalized abdominal pain. It started about 48 hours prior to presentation. He denied any diarrhea or hematemesis on presentation. Work-up upon presentation in the emergency department showed leukocytosis with a white count of 14.2. His chemistry panel was unremarkable. A CT of the abdomen and pelvis was performed and showed dilated small bowel loops with normal caliber distal ileal loops consistent with a high-grade distal small bowel obstruction. An NG was inserted in the emergency department and the patient was evaluated by general surgery and admitted to the medical floor. CT review of the CAT scan showed what appeared to be a very large brown object that was causing obstruction in the mid small bowel. When CTs from May reviewed, it appeared that the round object within his stomach at the pylorus at that time. On 08/26/2022 the patient was found to have sinus tachycardia and IV Lopressor was given which has since been transitioned to oral Lopressor as the patient is now allowed to take p.o. He was taken to the OR on the afternoon of 08/26/2022 at which time an exploratory laparotomy with small bowel resection was performed. A small soft foreign object was immediately identified and appeared to be causing a obstruction. It was unfortunately too large to remove and repair the bowel so small bowel resection was pursued. Postoperatively the patient had some SVT and some confusion. With time he became much more lucid and his heart rate trended back to baseline which was normal sinus rhythm. He was initially started on a clear liquid diet however had abdominal distention so his diet was changed to sips and chips. This lasted about 24 hours at which time he started having more extensive bowel movements and flatus and a p.o. diet was reinitiated with full liquids on 08/29/2022. The patient did well and was able to transition to a regular diet by that evening. He was seen by general surgery on the a.m. of 08/30/2022 and they felt he was stable to go home. We did have him evaluated by physical and Occupational Therapy prior to discharge to make sure he was safe and did not need any other services after discharge home. They did not recommend any ongoing therapy however did recommend a wheeled walker. He was given a prescription for wheeled walker at the time of discharge. He was given a short course of oxycodone for pain and a work slip by general surgery. He is to follow-up with his primary care physician within the next 2 weeks. He is also to call Dr. Saldana's office and follow-up with general surgery in the next 2 weeks. He was discharged home in stable condition on 08/30/2022. Discharge diagnoses: Complete small bowel obstruction status post small bowel resection SVT-resolved Metabolic/toxic encephalopathy-resolved Hypokalemia-resolved Hypophosphatemia-resolved Leukocytosis-resolved Seizure disorder Anxiety Depression History of tobacco abuse Physical Exam Narrative Patient states his pain is much better. He is tolerating a regular diet without any issue. He is anxious to go home. Const alert, oriented x3, no apparent distress, average body habitus and no limitations Constitutional Narrative: Upper middle-aged white male, sitting up in bed, watching television, appears comfortable and nontoxic General Appearance: cooperative, comfortable, well kempt and well developed Orientation / Consciousness: awake, oriented to person, oriented to place and oriented to time Exam Limitations: no limitations HEENT normocephalic, head/scalp atraumatic, hearing grossly normal bilaterally, moist oral mucous membranes and oropharynx normal HEENT Narrative: Edentulous, Mallampati 1, no thrush Eyes PERRL, EOMs intact bilaterally and conjunctivae normal Eyes Narrative: No scleral icterus Neck supple and no JVD Neck Narrative: Trachea midline, no thyroid enlargement Resp normal respiratory effort, no retractions, no use of accessory muscles and clear to auscultation bilaterally Resp Narrative: Diffusely diminished but clear Auscultation: Negative for rales, rhonchi or wheezes Cardio regular rate, regular rhythm, S1 normal heart sound, S2 normal heart sound, no rub, no gallops and no clicks; Negative for no murmurs Cardio Narrative: 2 out of 6 systolic murmur loudest at left lower sternal border GI normal to inspection, nondistended, normoactive bowel sounds, soft to palpation and non-distended GI Narrative: Midline incision is clean dry and intact, Steri-Strips are in place, still mild tenderness with palpation Extremity no clubbing, cyanosis or edema Extremity Narrative: Pedal pulses are 2+ Skin no rashes or lesions noted, No no wounds, skin turgor normal and no jaundice Skin Narrative: See above for abdominal incision no other wounds Neuro oriented x3, CN's II-XII intact bilaterally, moves all extremities, no focal motor deficits and no sensory deficits noted Sensorium / Orientation: awake, alert, oriented to person, oriented to place and oriented to time Speech: speech normal Psych affect normal Psych Narrative: Affect is good and patient is appropriately interactive with no signs of depression Weight / BMI Weight Weight: 66.8 kg Body Mass Index (BMI) 21.8 ABG / Lab / Microbiology Data 08/30/22 06:08 08/30/22 06:08 Laboratory: Laboratory Results - last 24 hr 08/30/22 06:08: WBC 10.5, RBC 3.47 L, Hgb 11.0 L, Hct 33.3 L, MCV 96.0 H, MCH 31.7, MCHC 33.0, RDW Std Deviation 46.5 H, RDW Coeff of Chacho 13.1, Plt Count 166, MPV 10.9, Immature Gran % (Auto) 2.200 H, Neut % (Auto) 67.9, Lymph % (Auto) 17.8 L, [place] % (Auto) 10.6 H, Eos % (Auto) 1.1, Baso % (Auto) 0.4, Absolute Neuts (auto) 7.2, Absolute Lymphs (auto) 1.87, Nucleated RBC % 0.2, Sodium 144, Potassium 3.1 L, Chloride 119 H, Carbon Dioxide 19.0 L, Anion Gap 6, BUN 11, Creatinine 0.67 L, Estim Creat Clear Calc 113.55, Est GFR (MDRD) Af Amer 157, Est GFR (MDRD) Non-Af 130, BUN/Creatinine Ratio 16.5, Glucose 94, Calcium 7.5 L, Phosphorus 3.1 D/C Instructions Discharge Diet: Light diet - advance as tolerated Call your doctor if your incision/area has: Continuous Slow Oozing, Sudden Increased Bleeding, Increased Pain/ Swelling, Increased Redness, Foul Smelling Discharge and Swelling at the incision site Call your doctor if you observe: Fever of 101 or Higher Cleanse incision/area with: Soap & Water Please Follow Up With: Todd Saldana MD When: Please call to schedule 2 week follow up appointment. [phone] Meaningful Use Info Meaningful Use Diagnoses (Choose all that apply): None applicable Discharge Plan Admission Admit Date/Time: 08/25/22 18:46 Primary Reason for Your Visit: Abdominal pain/nausea/vomiting Attending Provider: Desiree Ibarra Primary Care Provider: Jose Fields Consulting Providers: Todd Saldana; Attila Clement Instructions Forms: Work / School Excuse Discharge Orders/Prescriptions Prescriptions: New oxycodone 10 mg tablet 5 - 10 mg PO Q6H PRN (Reason: pain) 5 Days Qty: 10 0RF Continued topiramate 25 mg capsule,extended release 24hr 25 mg PO DAILY lamotrigine 200 MG tablet 200 mg PO BID Patient Comments: TAKE 1 TABLET TWICE DAILY nortriptyline 10 MG capsule 10 mg PO QHS Patient Comments: TAKE ONE CAPSULE BY MOUTH EVERY DAY AT BEDTIME gabapentin 300 MG capsule 300 mg PO BID multivitamin 1 EACH tablet 1 ea PO DAILY Patient Comments: supplement ferrous sulfate 325 MG tablet 325 mg PO DAILY@0800 fluoxetine 20 MG capsule 20 mg PO DAILY lamotrigine 100 MG tablet 100 mg PO TID Patient Comments: pt takes at 0700, 1400, 1900 clonazepam 0.5 tablet 0.25 mg PO QHS baclofen 10 tablet 10 mg PO QHS doxycycline monohydrate 100 MG capsule 100 mg PO BID Qty: 14 0RF Referrals / Follow Up: Todd Saldana MD [Med Staff - Active Staff] - Within 2 Weeks (Please call Dr. Saldana's office tomorrow to schedule appointment) Jose Fields DO [Primary Care Provider] - Within 2 Weeks Disposition Disposition (needs filled in before D/C Order can be placed): Home, Self Care Charges/Coding Visit Charges Inpatient E&M: 70800 Disch Hosp >30min
--- NOTE | 2022-08-30 11:45 | CASEMGMT ---
Addendum entered by Lucia Benitez 08/30/22 15:07: RIKKI TAPIA back into pt room, pt states that his landlord will pick him up from the hospital. Pt denies further needs. Addendum entered by Lucia Benitez 08/30/22 15:00: Received FWW, RIKKI TAPIA delivered to pt room, pt signed consignment form. Uploaded rx and form to [employer] and sent via [employer]. Pt does not have transportation home, pt aware that the [facility] van does not have availability to take him home. He will call his friend to see if the friend can transport him home. RIKKI TAPIA to check back with pt. Original Note: PT notified RIKKI TAPIA that pt is in need of a FWW. RN CM into pt room, pt sitting up in chair. Provided pt with a verbal local in network list of DME companies, pt reports no preference. Pt with visitor in room. Pt states he feels safe to go home with walker. He denies any homegoing needs. TC to supervisor warping department for FWW.
--- NOTE | 2022-08-30 11:58 | CASEMGMT ---
Social Work Per physician, pt's electric has been shut off at home. SW met with pt and discussed. Pt states that he talked to his landlord earlier today and the landlord paid the electric bill and it was turned back on. SW provided pt with written information regarding the HEAP/PIPP program through [employer]. NANCI Westbrook
[2022-08-30 15:02] VITALS: BP 92/56; PULSE 66; RESP 16; TEMP 36.8; O2SAT 95
== END 2022-08-30 16:09 | disposition home or self-care (01) | DRG 329 ==
LOC: ED 15:47 → MS3 19:22
PROVIDERS: Anesthesiology; Family Medicine; Surgery; Admitting Provider Internal Medicine; Emergency Provider Emergency Medicine; PCP Student in an Organized Health Care Education/Training Program; Visit Provider Internal Medicine
PROC: 0DT80ZZ Resection of Small Intestine, Open Approach (ICD-10-PCS; CPT 49000; principal; 2022-08-26 08:00)
DX: K56.601 Complete intestinal obstruction, unspecified as to cause (principal); G92.8 Other toxic encephalopathy; I47.1 Supraventricular tachycardia; E83.39 Other disorders of phosphorus metabolism; G40.909 Epilepsy, unspecified, not intractable, without status epilepticus; F32.A Depression, unspecified; E87.6 Hypokalemia; D72.829 Elevated white blood cell count, unspecified; F41.9 Anxiety disorder, unspecified; E86.0 Dehydration; Z79.01 Long term (current) use of anticoagulants; E07.81 Sick-euthyroid syndrome; Z87.891 Personal history of nicotine dependence
CPT/HCPCS: 36415; 74018; 74177; 80048; 80053; 81001; 82140; 83605; 83735; 84100; 84439; 84443; 84484; 85025; 85730; 88305; 93005; 97162; 99285; 99406; J7030; J7040; J7120; Q9967; A4216; J2405

== ENCOUNTER 2022-09-08 15:47 | Emergency (ER) | payer SELFPAY ==
[2022-09-08 15:48] VITALS: BP 111/57; PULSE 82; RESP 16; TEMP 36.5; O2SAT 100; BMI 22.4
--- NOTE | 2022-09-08 16:08 | EDS_ITS ---
HPI <AVIS Hutton - Last Filed: 09/08/22 17:31> History of Present Illness Chief Complaint: Edema Narrative Narrative: 56-year-old male has had bilateral lower extremity edema and tightness x1 week. He had a PCP appointment today and they sent him to the ED. He states 2 weeks ago he had surgery for a bowel obstruction and has not been walking much since then. 2 days ago he tried to walk up and down the deck steps to increase activity and fell and scraped his right parker. He has tried treating his lower extremity swelling with compression socks but its not helped. He denies chest pain, shortness of breath, or cough. No known history of cardiac, renal or liver disease. PFS <AVIS Hutton - Last Filed: 09/08/22 17:31> ON LICENSE OF [facility] Medical History DDD (degenerative disc disease), lumbar Epilepsy PTSD (post-traumatic stress disorder) Home Medications gabapentin 300 mg capsule 300 mg PO BID 05/14/16 [History Last Taken Unknown] lamotrigine 200 mg tablet 200 mg PO BID 05/14/16 [History Last Taken Unknown] nortriptyline 10 mg capsule 10 mg PO QHS 05/14/16 [History Last Taken Unknown] ferrous sulfate 325 mg (65 mg iron) tablet 325 mg PO DAILY@0800 05/15/16 [History Last Taken Unknown] fluoxetine 20 mg capsule 20 mg PO DAILY 05/15/16 [History Last Taken Unknown] lamotrigine 100 mg tablet 100 mg PO TID 05/15/16 [History Last Taken Unknown] multivitamin 1 ea PO DAILY 05/15/16 [History Last Taken Unknown] topiramate 25 mg capsule,extended release 24 hr 25 mg PO DAILY 11/05/18 [History Last Taken Unknown] baclofen 10 mg tablet 10 mg PO QHS 02/04/19 [History Last Taken Unknown] clonazepam 0.5 mg tablet 0.25 mg PO QHS 02/04/19 [History Last Taken Unknown] doxycycline monohydrate 100 mg capsule 100 mg PO BID #14 caps 04/24/19 [Rx Last Taken Unknown] oxycodone 10 mg tablet 5 - 10 mg (0.5 - 1 x 10 mg) PO Q6H PRN pain 5 days #10 tabs 08/30/22 [Rx Last Taken Unknown] furosemide 20 mg tablet (Lasix) 20 mg PO DAILY #3 tabs 09/08/22 [Rx Last Taken Unknown] Allergy/AdvReac Type Severity Reaction Status Date / Time No Known Allergies Allergy Verified 09/08/22 15:50 Social History Smoking Status: Current every day smoker tobacco type: cigarettes ROS <AVIS Hutton - Last Filed: 09/08/22 17:31> ROS ED ROS Narrative Constitutional: Negative for fever, chills, malaise. CVS: Negative for palpitations, chest pain. Respiratory: Negative for shortness of breath, cough, orthopnea. GI: Negative for abdominal pain, nausea, vomiting, constipation. Neuro: Negative for motor/sensory dysfunction. Skin: Positive for abrasion. EXAM <AVIS Hutton - Last Filed: 09/08/22 17:31> Physical Exam Narrative Exam Narrative: CONST: Patient sitting in no acute distress. EYES: Normal inspection. NECK: Normal inspection. RESP: No respiratory distress, CTAB. CVS: Regular rate and rhythm, no murmur, no gallop. ABD: Soft and nontender, no guarding or rebound, nondistended. SKIN: Color normal, no rash, warm, dry, intact. EXTREMITIES: 2+ pitting edema of both ankles. Right anterior parker abrasion with no signs of infection. Full ROM of lower extremities, compartments soft, no calf tenderness, strength and sensation intact, 2+ DP pulses. NEURO: Oriented x4. PSYCH: Normal affect. Const Vital Signs: 09/08/22 15:48 Temperature 97.7 F L Temperature Source Temporal Pulse Rate 82 Respiratory Rate 16 Blood Pressure 111/57 L Blood Pressure Mean 75 Pulse Ox 100 Oxygen Delivery Method Room Air <Dr. Yogesh Roque MD - Last Filed: 09/08/22 16:43> Physical Exam Const Vital Signs: 09/08/22 15:48 Temperature 97.7 F L Temperature Source Temporal Pulse Rate 82 Respiratory Rate 16 Blood Pressure 111/57 L Blood Pressure Mean 75 Pulse Ox 100 Oxygen Delivery Method Room Air MDM <AVIS Hutton - Last Filed: 09/08/22 17:31> MDM MDM Narrative Medical decision making narrative: Patient has bilateral lower extremity edema. He has no chest pain or shortness of breath. He appears well and nontoxic and is afebrile with normal vital signs. There is 2+ symmetric edema of both lower extremities. He has no calf tenderness or cords. Neurovascularly intact. Work-up was done to rule out CHF/renal disease. He has a normal white count of 9.0, mild anemia of 11.6 is stable. Normal electrolytes and renal function at 0.88. BNP is 400 but chest x-ray is negative for acute findings. I will trial Lasix 20 mg x 3 days with 1 dose given here. Since he has recent surgery I ordered ultrasound to be done tomorrow to rule out DVT although its less likely with bilateral symptoms. They are not available right now. Patient was comfortable with this plan and discharged in stable condition. I also spoke with the on-call physician at [facility], Dr. Rodriguez to relay these findings. Patient has an appointment scheduled for follow-up in 2 days. Differential: Peripheral edema, CHF, renal disease, DVT I have personally performed a face to face assessment of the patient and have reviewed the ALEYDA Note. I performed a substantive portion of the visit including all aspects of the following. My guadalupe findings include: History is 56-year-old male complaining of 2 to 3-week history of bilateral lower extremity swelling. Denies any prior history. No history of CHF or kidney disease. States he is still urinating. He did have surgery a week or so ago for small bowel obstruction but said he had a swelling prior to that. He denies any chest pain or shortness of breath. No history of DVT in the past. Exam is [well-appearing 56-year-old male. Vital signs stable afebrile. No distress. Sitting upright in a chair in the room. Pulse ox 100% on room air no signs hypoxia. H EENT exam unremarkable. Neck nontender no JVD. Lungs clear to auscultation bilaterally. Heart regular rhythm rate about 80 no murmur. Abdomen soft nontender. Well-healed prior abdominal incision scar. No signs of infection. Dry and clean. Moving all 4 extremities 1+ pitting edema both lower extremities. Equal symmetrical. Calves are nontender. He is able to wiggle his toes. Has normal touch sensation. He is awake and alert with no focal motor deficits.] Medical Decision Making [patient with bilateral lower extremity edema. Prior history of normal kidney function. No history of CHF. No prior history of DVT or PE and he had the recent swelling in both legs prior to his recent hospitalization.] Other additions or changes: [None] Lab Data Attestation: I reviewed the patient's lab results. Labs: Laboratory Results - last 24 hr 09/08/22 16:16 WBC 9.0 RBC 3.70 L Hgb 11.6 L Hct 36.1 L MCV 97.6 H MCH 31.4 MCHC 32.1 RDW Std Deviation 45.8 H RDW Coeff of Chacho 12.9 Plt Count 360 MPV 10.2 Immature Gran % (Auto) 0.400 Neut % (Auto) 66.9 Lymph % (Auto) 20.4 [place] % (Auto) 10.8 H Eos % (Auto) 1.1 Baso % (Auto) 0.4 Absolute Neuts (auto) 6.0 Absolute Lymphs (auto) 1.83 Nucleated RBC % 0 Sodium 139 Potassium 4.2 Chloride 113 H Carbon Dioxide 21.0 Anion Gap 5 BUN 5 L Creatinine 0.88 Estim Creat Clear Calc 89.23 Est GFR (MDRD) Af Amer 114 Est GFR (MDRD) Non-Af 94 BUN/Creatinine Ratio 5.7 L Glucose 87 Calcium 8.7 B-Natriuretic Peptide 400.8 H Radiography Diagnostic Testing: Clinical Impression(s) from Imaging Studies Chest X-Ray 09/08/22 16:50 IMPRESSION: No acute cardiopulmonary process. Electronically Signed: Frank Tapia (Brooks), at 17:28 EDT Reading Location ID and State: [facility] / [place] , Service support , EKG Initial EKG: Attestation: I personally reviewed and interpreted this EKG as follows: Interpretation: Sinus Rhythm and No Acute Injury Pattern Comments: Normal sinus rhythm at 75 bpm, no ectopy or ischemic changes <Dr. Yogesh Roque MD - Last Filed: 09/08/22 16:43> [facility] Narrative Medical decision making narrative: I have personally performed a face to face assessment of the patient and have reviewed the ALEYDA Note. I performed a substantive portion of the visit including all aspects of the following. My guadalupe findings include: History is 56-year-old male complaining of 2 to 3-week history of bilateral lower extremity swelling. Denies any prior history. No history of CHF or kid viji disease. States he is still urinating. He did have surgery a week or so ago for small bowel obstruction but said he had a swelling prior to that. He denies any chest pain or shortness of breath. No history of DVT in the past. Exam is [well-appearing 56-year-old male. Vital signs stable afebrile. No distress. Sitting upright in a chair in the room. Pulse ox 100% on room air no signs hypoxia. H EENT exam unremarkable. Neck nontender no JVD. Lungs clear to auscultation bilaterally. Heart regular rhythm rate about 80 no murmur. Abdomen soft nontender. Well-healed prior abdominal incision scar. No signs of infection. Dry and clean. Moving all 4 extremities 1+ pitting edema both lower extremities. Equal symmetrical. Calves are nontender. He is able to wiggle his toes. Has normal touch sensation. He is awake and alert with no focal motor deficits.] Medical Decision Making [patient with bilateral lower extremity edema. Prior history of normal kidney function. No history of CHF. No prior history of DVT or PE and he had the recent swelling in both legs prior to his recent hospitalization.] Other additions or changes: [None] Lab Data Attestation: I reviewed the patient's lab results. Lab results narrative: CBC shows a white count 9. H&H 11.6 and 36. Platelets of 360. Electrolytes show a gap of 5. Normal BUN and creatinine. Glucose of 87. Labs: Laboratory Results - last 24 hr 09/08/22 16:16 WBC 9.0 RBC 3.70 L Hgb 11.6 L Hct 36.1 L MCV 97.6 H MCH 31.4 MCHC 32.1 RDW Std Deviation 45.8 H RDW Coeff of [place]acho 12.9 Plt Count 360 MPV 10.2 Immature Gran % (Auto) 0.400 Neut % (Auto) 66.9 Lymph % (Auto) 20.4 [place] % (Auto) 10.8 H Eos % (Auto) 1.1 Baso % (Auto) 0.4 Absolute Neuts (auto) 6.0 Absolute Lymphs (auto) 1.83 Nucleated RBC % 0 Sodium 139 Potassium 4.2 Chloride 113 H Carbon Dioxide 21.0 Anion Gap 5 BUN 5 L Creatinine 0.88 Estim Creat Clear Calc 89.23 Est GFR (MDRD) Af Amer 114 Est GFR (MDRD) Non-Af 94 BUN/Creatinine Ratio 5.7 L Glucose 87 Calcium 8.7 B-Natriuretic Peptide 400.8 H Radiography Diagnostic Testing: Clinical Impression(s) from Imaging Studies Chest X-Ray 09/08/22 16:50 IMPRESSION: No acute cardiopulmonary process. Electronically Signed: Frank Russeltheodore Willie, at 17:28 EDT , Discharge Plan Triage Chief Complaint: Edema ED Midlevel Provider: Patricia Quintanilla ED Provider: Yogesh Roque Dx/Rx/DC Orders Clinical Impression: Bilateral edema of lower extremity Instructions: ED Peripheral Edema, Bilateral Prescriptions: New furosemide [Lasix] 20 mg tablet 20 mg PO DAILY Qty: 3 0RF No Action topiramate 25 mg capsule,extended release 24hr 25 mg PO DAILY lamotrigine 200 MG tablet 200 mg PO BID Patient Comments: TAKE 1 TABLET TWICE DAILY nortriptyline 10 MG capsule 10 mg PO QHS Patient Comments: TAKE ONE CAPSULE BY MOUTH EVERY DAY AT BEDTIME gabapentin 300 MG capsule 300 mg PO BID multivitamin 1 EACH tablet 1 ea PO DAILY Patient Comments: supplement ferrous sulfate 325 MG tablet 325 mg PO DAILY@0800 fluoxetine 20 MG capsule 20 mg PO DAILY lamotrigine 100 MG tablet 100 mg PO TID Patient Comments: pt takes at 0700, 1400, 1900 clonazepam 0.5 tablet 0.25 mg PO QHS baclofen 10 tablet 10 mg PO QHS doxycycline monohydrate 100 MG capsule 100 mg PO BID Qty: 14 0RF oxycodone 10 mg tablet 5 - 10 mg PO Q6H PRN (Reason: pain) 5 Days Qty: 10 0RF Other Ambulatory Orders: Venous Duplex US - Zoran Extrem (Stat) Facility: [facility] - Location: [facility] Ordered By: Patricia Quintanilla Primary Care Provider: Jose Fields Referrals: Jose Fields DO [Primary Care Provider] - Activity Restrictions/Additional Instructions: I ordered ultrasounds of both her legs to be done tomorrow to rule out blood clots. Please follow-up with your primary care doctor. Disposition Disposition: Home, Self Care
[2022-09-08 16:22] LABS: Absolute Lymphocyte Count 1.83 X10^3/uL (0.83-4.51); Basophil# 0.04 X10^3/uL; Basophil% 0.4 % (0-1); Eosinophils% 1.1 % (0-5); Hematocrit 36.1 % (40-54); Hemoglobin 11.6 g/dL (13.0-16.5); Lymphocyte # 1.83 X10^3/ul (0.83-4.51); Lymphocyte % 20.4 % (19-41); Mean Corp Hgb Conc 32.1 g/dL (32-36); Mean Corpuscular Hgb 31.4 pg (27.0-32.0); Mean Corpuscular Volume 97.6 fL (80-94); Mean Platelet Vol. 10.2 fl (6.2-12.0); Monocyte# 0.97 X10^3/uL; Monocyte% 10.8 % (0-10); NRBC Flagged by Analyzer 0 % (0-5); Neutrophil # 5.99 X10^3/uL (2.7-7.7); Neutrophil % 66.9 % (47-70); Platelet Count 360 K/mm3 (150-450); RBC Distribution Width CV 12.9 % (11.6-14.6); RBC Distribution Width SD 45.8 fl (35.1-43.9)
[2022-09-08 16:35] LABS: Anion Gap 5 (5-15); BUN 5 mg/dL (7-18); BUN/Creat Ratio 5.7 RATIO (10-20); Calcium,Total 8.7 mg/dL (8.5-10.1); Chloride 113 mmol/L (98-107); Creatinine, Serum 0.88 mg/dL (0.70-1.30); EST Glomerular Filtration Rate 94 mL/min (>60); Est Glom Filt Rate - Afr Amer 114 mL/min (>60); Estimated Creatinine Clearance 89.23 ml/min; Glucose 87 mg/dL (74-106); Potassium 4.2 mmol/L (3.5-5.1); Sodium Level 139 mmol/L (136-145)
--- NOTE | 2022-09-08 16:50 | RAD_ITS ---
STUDY: X-RAY CHEST REASON FOR EXAM: Male, 56 years old. dyspnea TECHNIQUE: PA and lateral views of the chest. COMPARISON: 05/14/2016 FINDINGS: No airspace consolidation. There is no demonstrated pleural abnormality. Normal size heart. Normal mediastinum and zara. Normal visualized pulmonary arteries. There is atherosclerotic calcification of the aortic arch with tortuosity. There is demineralization of the osseous structures. Two lead cardiac conduction device is seen via the left subclavian vein with lead tips projecting over the right atrium and right ventricle, respectively. There is no demonstrated abnormality of the visualized soft tissue structures of the upper abdomen. RAD/Chest PA and Lateral IMPRESSION: No acute cardiopulmonary process. Electronically Signed: Frank Tapia (Brooks), at 17:28 EDT ,
[2022-09-08 16:51] LABS: BNP,B-Type NATRIURETIC PEPTIDE 400.8 pg/mL (0-100)
[2022-09-08] MEDS: Furosemide 20 MG Tablet PO (17:54)
== END 2022-09-08 17:57 | disposition home or self-care (01) ==
PROVIDERS: Physician Assistant; Emergency Provider Emergency Medicine; PCP Student in an Organized Health Care Education/Training Program; Visit Provider Emergency Medicine
DX: R60.0 Localized edema (principal); G40.909 Epilepsy, unspecified, not intractable, without status epilepticus; F17.210 Nicotine dependence, cigarettes, uncomplicated; Z79.899 Other long term (current) drug therapy
CPT/HCPCS: 71046; 80048; 83880; 85025; 93005; 99284; A4216

== ENCOUNTER 2022-09-28 11:25 | Emergency (ER) | payer MEDICARE, SELFPAY ==
[2022-09-28 11:26] VITALS: BP 135/75; PULSE 92; RESP 14; TEMP 36.7; O2SAT 98; BMI 22.4
[2022-09-28 11:40] VITALS: BP 121/66; PULSE 91; RESP 25; O2SAT 98
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
[2022-09-28 12:01] LABS: Absolute Lymphocyte Count 1.97 X10^3/uL (0.83-4.51); Absolute Neutrophil Count 6.9 X10^3/uL (2.0-7.7); Basophil# 0.02 X10^3/uL; Basophil% 0.2 % (0-1); Eosinophil# 0.08 X10^3/uL; Eosinophils% 0.8 % (0-5); Hematocrit 33.5 % (40-54); Hemoglobin 10.6 g/dL (13.0-16.5); Lymphocyte # 1.97 X10^3/ul (0.83-4.51); Lymphocyte % 20.2 % (19-41); Mean Corp Hgb Conc 31.6 g/dL (32-36); Mean Platelet Vol. 10.2 fl (6.2-12.0); Monocyte# 0.74 X10^3/uL; Monocyte% 7.6 % (0-10); NRBC Flagged by Analyzer 0 % (0-5); Neutrophil % 70.7 % (47-70); Platelet Count 276 K/mm3 (150-450); RBC Distribution Width CV 14.1 % (11.6-14.6); RBC Distribution Width SD 50.6 fl (35.1-43.9); Red Blood Count 3.42 M/mm3 (4.6-6.2); White Blood Count 9.8 K/mm3 (4.4-11.0)
[2022-09-28] MEDS: Ondansetron 4 MG/2 ML Vial IV (12:04)
[2022-09-28] MEDS: Morphine 4 MG/ML Syringe IV (12:04)
[2022-09-28] MEDS: 0.9% Normal Saline 1,000 ML 150 ML IV (12:05)
[2022-09-28 12:13] LABS: Anion Gap 4 (5-15); BUN 6 mg/dL (7-18); BUN/Creat Ratio 6.4 RATIO (10-20); Calcium,Total 8.5 mg/dL (8.5-10.1); Chloride 109 mmol/L (98-107); Creatinine, Serum 0.93 mg/dL (0.70-1.30); EST Glomerular Filtration Rate 88 mL/min (>60); Est Glom Filt Rate - Afr Amer 107 mL/min (>60); Estimated Creatinine Clearance 84.25 ml/min; Glucose 104 mg/dL (74-106); Potassium 3.8 mmol/L (3.5-5.1); Sodium Level 139 mmol/L (136-145)
[2022-09-28 12:32] VITALS: PULSE 86; RESP 18; O2SAT 98
[2022-09-28 13:32] VITALS: RESP 16; O2SAT 100
[2022-10-01 19:07] LABS: Lamotrigine (Lamictal) Level 6.1 ug/mL (2.0-20.0); Topiramate 5.9 ug/mL (2.0-25.0)
== END 2022-09-28 13:33 | disposition home or self-care (01) ==
PROVIDERS: Emergency Provider Emergency Medicine; PCP Student in an Organized Health Care Education/Training Program; Visit Provider Emergency Medicine
DX: G40.909 Epilepsy, unspecified, not intractable, without status epilepticus (principal); F17.210 Nicotine dependence, cigarettes, uncomplicated; S22.42XA Multiple fractures of ribs, left side, initial encounter for closed fracture; V18.0XXA Pedal cycle driver injured in noncollision transport accident in nontraffic accident, initial encounter; Y93.55 Activity, bike riding
CPT/HCPCS: 71101; 80048; 80201; 82542; 85025; 96361; 96374; 96375; 99284; J7030; A4216; J2405

== ENCOUNTER 2022-10-05 20:04 | Emergency (ER) | payer MEDICARE, SELFPAY ==
[2022-10-05 20:07] VITALS: BP 108/60; PULSE 83; RESP 15; TEMP 36.3; O2SAT 98; BMI 22.1
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
[2022-10-05 21:16] LABS: Absolute Lymphocyte Count 2.15 X10^3/uL (0.83-4.51); Absolute Neutrophil Count 3.5 X10^3/uL (2.0-7.7); Basophil# 0.03 X10^3/uL; Basophil% 0.5 % (0-1); Eosinophil# 0.23 X10^3/uL; Eosinophils% 3.5 % (0-5); Hematocrit 34.4 % (40-54); Hemoglobin 11.1 g/dL (13.0-16.5); Lymphocyte # 2.15 X10^3/ul (0.83-4.51); Lymphocyte % 32.6 % (19-41); Mean Corp Hgb Conc 32.3 g/dL (32-36); Mean Corpuscular Hgb 30.9 pg (27.0-32.0); Mean Corpuscular Volume 95.8 fL (80-94); Mean Platelet Vol. 9.8 fl (6.2-12.0); Monocyte% 10.6 % (0-10); NRBC Flagged by Analyzer 0 % (0-5); Neutrophil # 3.47 X10^3/uL (2.7-7.7); Neutrophil % 52.5 % (47-70); Platelet Count 248 K/mm3 (150-450); RBC Distribution Width CV 13.7 % (11.6-14.6); RBC Distribution Width SD 48.9 fl (35.1-43.9); Red Blood Count 3.59 M/mm3 (4.6-6.2); White Blood Count 6.6 K/mm3 (4.4-11.0)
[2022-10-05 21:43] LABS: Anion Gap 4 (5-15); BUN 7 mg/dL (7-18); BUN/Creat Ratio 6.9 RATIO (10-20); Calcium,Total 8.6 mg/dL (8.5-10.1); Chloride 110 mmol/L (98-107); Creatinine, Serum 1.01 mg/dL (0.70-1.30); EST Glomerular Filtration Rate 80 mL/min (>60); Est Glom Filt Rate - Afr Amer 97 mL/min (>60); Estimated Creatinine Clearance 73.63 ml/min; Glucose 88 mg/dL (74-106); Potassium 4.5 mmol/L (3.5-5.1); Sodium Level 140 mmol/L (136-145)
[2022-10-05 23:16] VITALS: BP 124/78; PULSE 68; RESP 14; O2SAT 97
== END 2022-10-05 23:17 | disposition home or self-care (01) ==
PROVIDERS: Emergency Provider Emergency Medicine; PCP Student in an Organized Health Care Education/Training Program; Visit Provider Emergency Medicine
DX: R56.9 Unspecified convulsions (principal); F17.210 Nicotine dependence, cigarettes, uncomplicated; F43.10 Post-traumatic stress disorder, unspecified; D64.9 Anemia, unspecified
CPT/HCPCS: 70450; 80048; 85025; 99285; A4216

== ENCOUNTER 2022-10-09 12:09 | Emergency (ER) | payer SELFPAY ==
[2022-10-09 12:10] VITALS: BP 116/78; PULSE 82; RESP 15; TEMP 36.6; BMI 24.1
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
--- NOTE | 2022-10-09 12:15 | EKG12_ITS ---
Test Reason : TRAUMA Blood Pressure : / mmHG Vent. Rate : 078 BPM Atrial Rate : 078 BPM P-R Int : 230 ms QRS Dur : 108 ms QT Int : 436 ms P-R-T Axes : 075 -05 054 degrees QTc Int : 497 ms Sinus rhythm with 1st degree A-V block Nonspecific ST and T wave abnormality Prolonged QT Abnormal ECG Confirmed by FITO STOUT ([id number]), city editor LORRIE GARDNER ([id number]) on 10/13/2022 9:35:13 AM Referred By: SAÚL Confirmed By:FITO STOUT
--- NOTE | 2022-10-09 12:16 | CT_ITS ---
STUDY: CT BRAIN WITHOUT CONTRAST REASON FOR EXAM: Male, 57 years old. History of seizures. Unresponsive. Abrasions. RADIATION DOSAGE (If Supplied By Facility): CTDIvol = ( 44.99 ) mGy, DLP = ( 981.71 ) mGycm TECHNIQUE: Transaxial CT imaging of the brain was performed without administration of intravenous contrast material. Individualized dose optimization techniques were used for this CT. COMPARISON: No relevant priors. FINDINGS: Soft tissue swelling and lacerations overlying the right frontal bone. Tiny radiopacity seen within the soft tissues suggestive of possible radiopaque foreign body. Normal calvarium. Normal size ventricles and extra-axial spaces for the patient''s age. Normal white matter tracts of the cerebral hemispheres. Normal basal ganglia and thalami. Normal brainstem. Normal cerebellum. There is no intracranial hemorrhage. There are no findings of an acute ischemic infarction. Normal visualized paranasal sinuses. CT/Brain/Head without Contrast IMPRESSION: Normal unenhanced CT scan of the brain. Soft tissue swelling and laceration overlying the right frontal bone. Tiny radiopacity is seen within the subcutaneous tissues. Electronically Signed: Daren Cervantes MD at 12:50 EDT ,
[2022-10-09 12:18] VITALS: BP 100/67; PULSE 81
[2022-10-09 12:25] LABS: Blood Gas Specimen Type VEN; O2 Delivery Device Cannula; VBG BASE EXCESS 0 mmol/L (-1.0-3.5); VBG Bicarbonate 25 mmol/L (22-26); VBG PO2 86 mmHg (25-40); VBG SO2 97 % (50-70); VBG TCO2 26 mmol/L (23-33); VBG pCO2 39.5 mmHg (41-51)
--- NOTE | 2022-10-09 12:29 | CT_ITS ---
STUDY: CT CERVICAL SPINE WITHOUT CONTRAST REASON FOR EXAM: Male, 57 years old. Trauma. Unresponsive this. Abrasions. RADIATION DOSAGE (If Supplied By Facility): CTDIvol = ( 23.39 ) mGy, DLP = ( 547.71 ) mGycm TECHNIQUE: High resolution transaxial imaging was performed without contrast material. Sagittal and coronal images were reconstructed. Individualized dose optimization techniques were used for this CT. COMPARISON: None FINDINGS: Normal craniovertebral junction. Normal anterior atlantoaxial articulation. Normal odontoid process. Normal cervical lordosis. Normal vertebral bodies and posterior osseous elements. C2-3: Normal endplates. Normal disc height and morphology. Normal central canal and intervertebral neuroforamina. C3-4: Anterior spondylosis. C4-5: Normal endplates. Normal disc height and morphology. Normal central canal and intervertebral neuroforamina. C5-6: Normal endplates. Normal disc height and morphology. Normal central canal and intervertebral neuroforamina. C6-7: Normal endplates. Normal disc height and morphology. Normal central canal and intervertebral neuroforamina. C7-T1: Normal endplates. Normal disc height and morphology. Normal central canal and intervertebral neuroforamina. Normal visualized soft tissue structures. CT/Spine Cervical without Contras IMPRESSION: Mild degenerative changes, as described above. Electronically Signed: Daren Cervantes MD at 12:54 EDT ,
[2022-10-09 12:30] VITALS: BP 111/60; PULSE 76; RESP 10; O2SAT 99
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
[2022-10-09] MEDS: Diphth,Pertuss(Acell),Tet Vac 0.5 ML Vial IM (12:35)
[2022-10-09] MEDS: Ondansetron 4 MG/2 ML Vial IV (12:35)
[2022-10-09] MEDS: 0.9% Normal Saline 1,000 ML 999 ML IV (12:37)
[2022-10-09] MEDS: Cefazolin 1 GM/50 ML BAG IV (12:41)
[2022-10-09 12:44] LABS: Absolute Lymphocyte Count 1.93 X10^3/uL (0.83-4.51); Absolute Neutrophil Count 4.4 X10^3/uL (2.0-7.7); Basophil# 0.02 X10^3/uL; Basophil% 0.3 % (0-1); Eosinophil# 0.25 X10^3/uL; Eosinophils% 3.4 % (0-5); Hematocrit 32.6 % (40-54); Hemoglobin 10.5 g/dL (13.0-16.5); Lymphocyte # 1.93 X10^3/ul (0.83-4.51); Lymphocyte % 25.9 % (19-41); Mean Corp Hgb Conc 32.2 g/dL (32-36); Mean Corpuscular Hgb 31.3 pg (27.0-32.0); Mean Corpuscular Volume 97.3 fL (80-94); Mean Platelet Vol. 10.4 fl (6.2-12.0); Monocyte# 0.78 X10^3/uL; Monocyte% 10.5 % (0-10); NRBC Flagged by Analyzer 0 % (0-5); Neutrophil # 4.44 X10^3/uL (2.7-7.7); Neutrophil % 59.6 % (47-70); Platelet Count 248 K/mm3 (150-450); RBC Distribution Width SD 50.2 fl (35.1-43.9); Red Blood Count 3.35 M/mm3 (4.6-6.2); White Blood Count 7.4 K/mm3 (4.4-11.0)
[2022-10-09 12:45] VITALS: BP 117/63; PULSE 78; RESP 7; O2SAT 99
[2022-10-09 12:48] LABS: International Normalized Ratio 1.1; Prothrombin Time (Protime)PT. 14.7 SECONDS (11.7-14.9)
[2022-10-09 12:49] LABS: Partial Thromboplast Time 29.4 Seconds (24.1-36.2)
[2022-10-09 12:50] LABS: Amphetamine Urine VISTA NEGATIVE (<1000 ng/mL); Barbiturate Urine VISTA NEGATIVE (< 200 ng/mL); Benzodiazepine Urine VISTA NEGATIVE (< 200 ng/mL); Cocaine Urine VISTA NEGATIVE (< 300 ng/mL); Ecstacy Urine VISTA NEGATIVE (< 500 ng/mL); Methadone Urine VISTA NEGATIVE (< 300 ng/mL); PCP Urine VISTA NEGATIVE (< 25 ng/mL); THC Urine VISTA NEGATIVE (< 50 ng/mL); Vista UDS pH Range 6
[2022-10-09 12:52] LABS: Anion Gap 7 (5-15); BUN 11 mg/dL (7-18); BUN/Creat Ratio 11.2 RATIO (10-20); Calcium,Total 8.3 mg/dL (8.5-10.1); Chloride 110 mmol/L (98-107); Creatinine, Serum 0.98 mg/dL (0.70-1.30); EST Glomerular Filtration Rate 83 mL/min (>60); Est Glom Filt Rate - Afr Amer 101 mL/min (>60); Estimated Creatinine Clearance 78.52 ml/min; Glucose 91 mg/dL (74-106); Sodium Level 144 mmol/L (136-145)
[2022-10-09 12:52] LABS: Bacteria 0 SEEN /hpf (None Seen); Mucous, Urine 0 SEEN /hpf (<or=2+); Squamous Epithelial Cells - UA 0 SEEN /hpf (0-5)
[2022-10-09 12:53] LABS: Color, Urine Yellow (Yellow); Glucose, Dipstick Normal (Normal); Ketone-Dipstick Negative (Negative); Leukocyte Esterase-Dipstick Negative /ul (Negative); Nitrite-Dipstick Negative (Negative); Occult Blood-Urine Negative /ul (Negative); Protein-Dipstick 15 mg/dl (Negative); Specific Gravity, Urine 1.015 (1.002-1.030); Urine Bilirubin Dipstick Negative (Negative); Urine Clarity Clear (Clear); Urine Urobilinogen 1 mg/dl (Normal)
[2022-10-09] MEDS: Etomidate 20 MG/10 ML Vial 15 MG IV (12:55)
[2022-10-09] MEDS: Rocuronium Bromide 50 MG/5 ML Vial 90 MG IV (12:56)
[2022-10-09 13:00] LABS: Red Blood Cells-Urine 0-5 SEEN /hpf (0-5); White Blood Cells 0-5 SEEN /hpf (0-5)
--- NOTE | 2022-10-09 13:00 | RAD_ITS ---
STUDY: X-RAY CHEST REASON FOR EXAM: Male, 57 years old. Tube placement TECHNIQUE: Single AP portable view of the chest. COMPARISON: Comparison is made with prior study done earlier in the day. FINDINGS: An endotracheal tube is in situ. The tip is at 4.2 cm proximal to the marva. A nasogastric tube is seen with the tip in the fundal portion of the stomach. The lungs are clear and expanded. There is no demonstrated pleural abnormality. Normal size heart. Normal mediastinum and zara. Normal visualized pulmonary arteries. There is atherosclerotic calcification of the aortic arch with tortuosity. Normal visualized thoracic spine. Status post bilateral shoulder replacement. There is no demonstrated abnormality of the visualized soft tissue structures of the upper abdomen. RAD/Chest 1 View (Portable) IMPRESSION: The tip of the endotracheal tube is at 4.2 cm proximal to the marva. The tip of the nasogastric tube is in the fundal portion of the stomach. Electronically Signed: Daren Cervantes MD at 13:40 EDT ,
[2022-10-09 13:09] VITALS: BP 124/69
[2022-10-09 13:15] LABS: Alcohol, Blood (Medical)-Serum < 3.0 mg/dL
--- NOTE | 2022-10-09 13:46 | ED.RN ---
1300- [facility] transport arrive. 1320- [facility] transport left. 1323- Report given to Jessica at [facility]
[2022-10-09 13:48] VITALS: PULSE 78; RESP 7
== END 2022-10-09 13:20 | disposition short-term general hospital (02) ==
PROVIDERS: Emergency Provider Emergency Medicine; PCP Student in an Organized Health Care Education/Training Program; Visit Provider Emergency Medicine
DX: S60.221A Contusion of right hand, initial encounter (principal); G40.909 Epilepsy, unspecified, not intractable, without status epilepticus; R41.82 Altered mental status, unspecified; S80.812A Abrasion, left lower leg, initial encounter; S01.01XA Laceration without foreign body of scalp, initial encounter; F17.210 Nicotine dependence, cigarettes, uncomplicated; S80.811A Abrasion, right lower leg, initial encounter; S61.411A Laceration without foreign body of right hand, initial encounter; W01.0XXA Fall on same level from slipping, tripping and stumbling without subsequent striking against object, initial encounter
CPT/HCPCS: 31500; 51702; 70450; 71045; 72125; 72170; 80048; 80307; 81001; 82077; 82803; 85025; 85610; 85730; 90715; 93005; 96365; 96375; 99252; 99285; J7030; A4216; G0463; J2405

== ENCOUNTER 2022-11-21 11:28 | Emergency (ER) | payer SELFPAY ==
[2022-11-21 11:32] VITALS: BP 117/64; PULSE 79; RESP 18; TEMP 36.6; O2SAT 100; BMI 21.3
--- NOTE | 2022-11-21 11:54 | ED.VIS.FALL ---
HPI HPI - Fall History of Present Illness Chief Complaint: Fall Narrative Narrative: 57-year-old male presenting with left rib pain. Status post mechanical fall 4 days ago. Does not take anything for pain at home. He does not have cough or shortness of breath. Injury or LOC. PFSH PFSH Medical History Complete small bowel obstruction DDD (degenerative disc disease), lumbar Epilepsy PTSD (post-traumatic stress disorder) Home Medications baclofen 10 mg tablet 10 mg PO QHS 02/04/19 [History Last Taken Unknown] aripiprazole 5 mg tablet 5 mg PO DAILY 09/28/22 [History Last Taken Unknown] gabapentin 600 mg tablet 600 mg PO Q12H 09/28/22 [History Last Taken Unknown] lamotrigine 25 mg tablet 25 mg PO Q12H 09/28/22 [History Last Taken Unknown] nortriptyline 75 mg capsule 75 mg PO Q12H 09/28/22 [History Last Taken Unknown] hydrocodone-acetaminophen 5-325mg 5mg-325mg 1 tab PO Q6H PRN PRN Pain 3 days #12 TABLETS 11/21/22 [Rx Last Taken Unknown] lidocaine 5 % topical patch (Lidoderm) 1 patch topical DAILY PRN pain #15 ea 11/21/22 [Rx Last Taken Unknown] Allergy/AdvReac Type Severity Reaction Status Date / Time No Known Allergies Allergy Verified 11/21/22 11:34 Social History Smoking Status: Current every day smoker tobacco type: cigarettes ROS ROS ED Constitutional Constitutional ED: Denies chills, fever(s) or sweats Eyes Eyes: Denies blurry vision or change in vision ENT ENT ED: Denies ear pain or sore throat Cardiovascular Cardiovascular: Denies chest pain, palpitations or racing heartbeat Respiratory/Chest Respiratory/Chest: Reports other Details: Rib pain ; Denies sputum Gastrointestinal Gastrointestinal: Denies abdominal pain, constipation, diarrhea, nausea or vomiting Genitourinary Genitourinary ED: Denies dysuria, hematuria or urinary frequency Musculoskeletal Musculoskeletal: Denies arthralgias, myalgias or neck pain Integumentary Denies abscess, Abrasions or rash Neurologic Neurologic: Denies headache(s), paresthesias or weakness Psychiatric Psychiatric: Denies anxiety, depression, suicidal ideation or suicidal thoughts Endocrine Endocrinology: Denies polydipsia or polyuria EXAM Physical Exam Const Vital Signs: 11/21/22 11:32 11/21/22 11:35 Temperature 97.8 F Temperature Source Oral Pulse Rate 79 Respiratory Rate 18 Respiratory Effort Normal Non-Labored Respiratory Depth Normal Respiratory Pattern Normal Blood Pressure 117/64 Blood Pressure Mean 81 Pulse Ox 100 Oxygen Delivery Method Room Air Room Air Positive well nourished General Appearance ED: NAD HEENT Reports normocephalic atraumatic Eyes PERRL and EOMs intact bilaterally Neck full ROM Chest Wall Chest Narrative: Tenderness to palpation of left ribs. No crepitance, deformity, equal symmetric breath sounds and chest wall rise. Resp normal respiratory effort and no retractions Auscultation: Negative for rales, rhonchi or wheezes Cardio regular rate and regular rhythm MDM MDM MDM Narrative Medical decision making narrative: With left rib pain. On exam he has tenderness in the left ribs. Vital signs are stable he is afebrile. Differential includes rib fracture, rib contusion, pneumothorax, pneumonia. Left rib series was obtained. On my interpretation this shows acute left eighth and ninth rib fractures which are nondisplaced. There is old healing sixth, seventh, eighth rib fractures and age-indeterminate right-sided sixth rib fracture. Given oxycodone and Lidoderm patch in the ED. Is given a prescription for [facility] and Lidoderm patches for home. Patient discharged stable condition. Impression: 1. Mechanical fall 2. Left eighth rib fracture 3. Left ninth rib fracture Lab Data Attestation: I reviewed the patient's lab results. Radiography Diagnostic Testing: Clinical Impression(s) from Imaging Studies Ribs w/Chest X-Ray 11/21/22 11:58 IMPRESSION: Healing nondisplaced fractures of the left fifth, sixth, and seventh ribs. Nondisplaced acute fractures of the left eighth and ninth ribs. Age-indeterminate right sixth rib fracture. Mild bibasilar atelectasis. Electronically Signed: Jennifer Monae MD at 12:23 EDT , Discharge Plan Triage Chief Complaint: Fall ED Provider: Ulysses Thomason Dx/Rx/DC Orders Instructions: ED Rib Fracture Prescriptions: New hydrocodone-acetaminophen 5-325 mg tablet 1 tab PO Q6H PRN PRN (Reason: Pain) 3 Days Qty: 12 0RF lidocaine [Lidoderm] 5 % adhesive patch,medicated 1 patch topical DAILY PRN (Reason: pain) Qty: 15 0RF Rx Instructions: leave on most painful area for up to 12 hrs No Action baclofen 10 tablet 10 mg PO QHS gabapentin 600 mg tablet 600 mg PO Q12H lamotrigine 25 mg tablet 25 mg PO Q12H nortriptyline 75 mg capsule 75 mg PO Q12H aripiprazole 5 mg tablet 5 mg PO DAILY Primary Care Provider: Jose Fields Referrals: Jose Fields DO [Primary Care Provider] - Disposition Disposition: Home, Self Care
--- NOTE | 2022-11-21 11:58 | RAD_ITS ---
HISTORY: rib pain. TECHNIQUE: XR Ribs Unilateral W/ PA Chest Min 3 Views. COMPARISON: 10/09/2022. FINDINGS: CARDIOMEDIASTINAL BORDERS: Cardiac silhouette within normal limits in size. Mediastinal contour unremarkable. Endotracheal and nasogastric tubes removed. LUNGS: Mild linear bibasilar opacities. PLEURA: No pleural effusion or pneumothorax seen. OSSEOUS STRUCTURES: Nondisplaced right sixth rib fracture anteriorly. Left shoulder arthroplasty in place. Callus formation of the left anterior fifth, sixth and seventh ribs. Nondisplaced left anterior eighth and ninth rib fractures. OTHER: Large amount of stool in the colon. RAD/Ribs Uni Min 3V w/PA Chest IMPRESSION: Healing nondisplaced fractures of the left fifth, sixth, and seventh ribs. Nondisplaced acute fractures of the left eighth and ninth ribs. Age-indeterminate right sixth rib fracture. Mild bibasilar atelectasis. Electronically Signed: Jennifer Monae MD at 12:23 EDT ,
[2022-11-21 12:39] VITALS: BP 128/57; PULSE 81; O2SAT 99
[2022-11-21] MEDS: Lidocaine 5% Patch 1 PATCH TOPICAL (12:44)
[2022-11-21] MEDS: oxyCODONE 5 MG Tablet PO (12:45)
== END 2022-11-21 12:55 | disposition home or self-care (01) ==
PROVIDERS: Emergency Provider Student in an Organized Health Care Education/Training Program; PCP Student in an Organized Health Care Education/Training Program; Visit Provider Student in an Organized Health Care Education/Training Program
DX: S22.42XA Multiple fractures of ribs, left side, initial encounter for closed fracture (principal); G40.909 Epilepsy, unspecified, not intractable, without status epilepticus; W19.XXXA Unspecified fall, initial encounter; F17.210 Nicotine dependence, cigarettes, uncomplicated; Z79.899 Other long term (current) drug therapy; F43.10 Post-traumatic stress disorder, unspecified
CPT/HCPCS: 71101; 99285; A4216

== ENCOUNTER → 2023-03-27 | Outpatient (CLI) | payer MEDICARE, MEDICAID, SELFPAY ==
--- NOTE | 2023-03-27 15:46 | RAD_ITS ---
STUDY: X-RAY - LUMBAR SPINE REASON FOR EXAM: Male, 57 years old. RADICULOPATHY TECHNIQUE: 3 view(s) of the lumbar spine were obtained. COMPARISON: None FINDINGS: Normal lumbar lordosis. There is a mild levoscoliosis. There is a normal alignment of the vertebrae. Normal vertebral bodies and endplates. Normal disc space heights. The soft tissue structures are unremarkable. Vascular calcifications. RAD/Lumbar Spine 2 or 3 Views IMPRESSION: No acute bony injury of the lumbar spine. Mild levoscoliosis. Electronically Signed: Micha Cartwright DO at 23:35 EST Reading Location ID and State: [facility] / [place] Tel [phone], Service support ,
--- NOTE | 2023-03-27 15:46 | RAD_ITS ---
STUDY: X-RAY - THORACIC SPINE REASON FOR EXAM: Male, 57 years old. RADICULOPATHY TECHNIQUE: 3 view(s) of the thoracic spine were obtained. COMPARISON: 10/03/2015 CT chest FINDINGS: There is an increase in the normal thoracic kyphosis. There is no substantial scoliosis. There is multilevel endplate spondylosis of the thoracic vertebrae. There is a wedge compression deformity of T4 and T5 with noted focal increased kyphosis The soft tissue structures are unremarkable. RAD/Thoracic Spine 2 Views IMPRESSION: Chronic appearing wedge deformities of the upper thoracic spine at T4 and T5 with increased kyphosis. Continued back pain consider MRI imaging to assess occult microfracture. Additionally if radiculopathy is present consider MRI imaging for further assessment. Electronically Signed: Haroon Huston DO at 16:12 EST ,
[2023-03-27 16:34] LABS: Amphetamine Urine VISTA NEGATIVE (<1000 ng/mL); Barbiturate Urine VISTA NEGATIVE (< 200 ng/mL); Benzodiazepine Urine VISTA NEGATIVE (< 200 ng/mL); Cocaine Urine VISTA NEGATIVE (< 300 ng/mL); Ecstacy Urine VISTA NEGATIVE (< 500 ng/mL); Methadone Urine VISTA NEGATIVE (< 300 ng/mL); PCP Urine VISTA NEGATIVE (< 25 ng/mL); THC Urine VISTA NEGATIVE (< 50 ng/mL); Vista UDS pH Range 7
== END | disposition home or self-care (01) ==
LOC: LAB 15:35
PROVIDERS: PCP Student in an Organized Health Care Education/Training Program; Referring Provider Anesthesiology Pain Medicine; Visit Provider Anesthesiology Pain Medicine
DX: M51.26 Other intervertebral disc displacement, lumbar region (principal); F11.20 Opioid dependence, uncomplicated; M51.36 Other intervertebral disc degeneration, lumbar region
CPT/HCPCS: 72070; 72100; 80307

== ENCOUNTER → 2023-05-14 | Outpatient (CLI) | payer MEDICARE, MEDICAID, SELFPAY ==
[2023-05-14 15:10] LABS: Amphetamine Urine VISTA NEGATIVE (<1000 ng/mL); Barbiturate Urine VISTA NEGATIVE (< 200 ng/mL); Benzodiazepine Urine VISTA NEGATIVE (< 200 ng/mL); Cocaine Urine VISTA NEGATIVE (< 300 ng/mL); Ecstacy Urine VISTA NEGATIVE (< 500 ng/mL); Methadone Urine VISTA NEGATIVE (< 300 ng/mL); PCP Urine VISTA NEGATIVE (< 25 ng/mL); THC Urine VISTA NEGATIVE (< 50 ng/mL); Vista UDS pH Range 5
== END | disposition home or self-care (01) ==
PROVIDERS: PCP Student in an Organized Health Care Education/Training Program; Referring Provider Anesthesiology Pain Medicine; Visit Provider Anesthesiology Pain Medicine
DX: F11.20 Opioid dependence, uncomplicated (principal)
CPT/HCPCS: 80307

== ENCOUNTER → 2024-06-17 | Outpatient (CLI) | payer MEDICARE, MEDICAID, SELFPAY ==
--- NOTE | 2024-06-17 12:13 | RAD_ITS ---
PROCEDURE: LUMBAR SPINE 2 OR 3 VIEWS 06/17/2024 REASON FOR EXAM: BACK PAIN TECHNIQUE: 2 view(s) of the lumbar spine FINDINGS: Vertebrae: No fracture. Discs: Disc space heights are preserved. Alignment: Moderate levoscoliosis of the thoracolumbar spine. Other: RAD/Lumbar Spine 2 or 3 Views IMPRESSION: Moderate levoscoliosis. Reading Location: [id number]
--- NOTE | 2024-06-17 12:13 | RAD_ITS ---
PROCEDURE: THORACIC SPINE 2 VIEWS 06/17/2024 REASON FOR EXAM: BACK PAIN TECHNIQUE: 2 view(s) of the thoracic spine. FINDINGS: Normal thoracic vertebral body heights. Disc space heights are preserved. Moderate levoscoliosis of the thoracolumbar spine. Paraspinal soft tissues are unremarkable. Other: RAD/Thoracic Spine 2 Views IMPRESSION: Moderate levoscoliosis. Reading Location: [id number]
== END | disposition home or self-care (01) ==
PROVIDERS: PCP Student in an Organized Health Care Education/Training Program; Referring Provider Anesthesiology Pain Medicine; Visit Provider Anesthesiology Pain Medicine
DX: M54.9 Dorsalgia, unspecified (principal)
CPT/HCPCS: 72070; 72100